=== PATIENT | female | born 1935 | race American Indian/Alaskan Native ===

== ENCOUNTER 2017-04-22 14:51 | Inpatient (IN) | payer MEDICARE, BC ==
[2017-04-22 16:57] LABS: BASO % 0.5 % (0.0-2.0); EOS # 0.1 K/uL (0.0-0.7); EOS % 1.3 % (0.0-4.0); HEMATOCRIT 41.4 % (34.0-47.0); LYMPH # 1.1 K/uL (1.0-4.3); LYMPH % 11.7 % (20.0-40.0); MEAN CELL VOLUME 94.4 fL (81.0-99.0); MEAN CORPUSCULAR HEMOGLOBIN 31.3 pg (27.0-31.0); MEAN CORPUSCULAR HGB CONC 33.2 g/dL (33.0-37.0); MEAN PLATELET VOLUME 8.1 fL (7.2-11.7); MONO # 0.8 K/uL (0.0-0.8); MONO % 8.8 % (0.0-10.0); RED CELL DISTRIBUTION WIDTH 14.9 % (11.5-14.5); WHITE BLOOD COUNT 9.3 K/uL (4.8-10.8)
[2017-04-22 17:04] LABS: INR 1.2
[2017-04-22 17:12] LABS: CHLORIDE 102 mmol/L (98-107); POTASSIUM 3.5 mmol/L (3.6-5.2); SODIUM 139 mmol/L (132-148)
[2017-04-22 17:14] LABS: GFR AFRICAN-AMERICAN > 60
[2017-04-22 17:15] LABS: ALB/GLOB RATIO 0.9 (1.0-2.1); ALKALINE PHOSPHATASE 355 U/L (38-126); ALT/SGPT 213 U/L (9-52); AST/SGOT 228 U/L (14-36); BILIRUBIN,DIRECT 12.3 mg/dL (0.0-0.4); BILIRUBIN,TOTAL 14.2 mg/dL (0.2-1.3); BLOOD UREA NITROGEN 15 mg/dL (7-17); CALCIUM 9.2 mg/dl (8.6-10.4); CARBON DIOXIDE 23 mmol/L (22-30); GLUCOSE,RANDOM 102 mg/dL (65-105); TOTAL PROTEIN 8.4 g/dL (6.3-8.3)
[2017-04-22] MEDS ORDERED: Imipenem/Cilastatin 500 MG in Dextrose 5% In Water 100 ML IVPB STA (17:38)
[2017-04-22] MEDS ORDERED: Piperacillin/Tazobact 3.375 GM in Sodium Chloride 100 ML IVPB STA (17:58)
--- NOTE | 2017-04-22 18:02 | C.PDOC ---
History Of Present Illness 81 y/o female with Hx of Choledocholithiasis sent to ED by PMD for evaluation of Jaundice and Choledocholithiasis. Patient had a STENT at [facility] and discharged home with advised follow up in 3 weeks. At ED patient is complaining of epigastric pain. Patient denies fever, chills, back pain, n/v or any other complaints at this time. Time Seen by Provider: 04/22/17 16:21 Chief Complaint (Nursing): Abdominal Pain History Per: Patient History/Exam Limitations: no limitations Onset/Duration Of Symptoms: Days Current Symptoms Are (Timing): Still Present Location Of Pain/Discomfort: Epigastric Past Medical History Reviewed: Historical Data, Nursing Documentation, Vital Signs Vital Signs: Last Vital Signs Temp 97.8 F 04/29/17 07:55 Pulse 76 04/29/17 07:55 Resp 20 04/29/17 07:55 BP 139/70 04/29/17 07:55 Pulse Ox 95 04/29/17 07:55 - Medical History PMH: HTN, Hyperlipidemia Surgical History: No Surg Hx - [facility] Procedures DILATION OF COMMON BILE DUCT WITH INTRALUMINAL DEVICE, ENDO (04/13/17) EXTIRPATION OF MATTER FROM COMMON BILE DUCT, ENDO (04/13/17) Family History: States: No Known Family Hx - Social History Hx Alcohol Use: No (USED TO DRINK OCCASIONALLY-DRANK BEER OR BOURBON) Hx Substance Use: No - Immunization History Hx Tetanus Toxoid Vaccination: No Hx Influenza Vaccination: No Hx Pneumococcal Vaccination: No Review Of Systems Except As Marked, All Systems Reviewed And Found Negative. Gastrointestinal: Positive for: Abdominal Pain Physical Exam - Physical Exam Appears: Non-toxic, No Acute Distress Skin: Normal Color, Warm, Dry, No Rash Head: Atraumatic, Normacephalic Eye(s): bilateral: PERRL, EOMI, Scleral Icterus Oral Mucosa: Moist Neck: Normal ROM, Supple Chest: Symmetrical Cardiovascular: Rhythm Regular, No Murmur Respiratory: Normal Breath Sounds, No Rales, No Rhonchi, No Wheezing Gastrointestinal/Abdominal: Tenderness (Mild epigastric), No Guarding, No Rebound Back: No CVA Tenderness, No Paraspinal Tenderness Neurological/Psych: Oriented x3 ED Course And Treatment - Laboratory Results Result Diagrams: 04/29/17 08:41 04/29/17 09:39 O2 Sat by Pulse Oximetry: 98 (RA) Pulse Ox Interpretation: Normal Medical Decision Making Medical Decision Making: Discussed with Dr. Purvis who requested IV antibiotics GI fellow covering for Dr Merlos request MRCP attempt today if not tomorrow GI Fellow called back No MRCP to be done, it will be done Tuesday Disposition - Disposition Disposition: HOSPITALIZED Disposition Time: 06:00 Condition: STABLE - Clinical Impression Clinical Impression: Choledocholithiasis - Scribe Statement The provider has reviewed the documentation as recorded by the Jodiibeverardo Pierre All medical record entries made by the Jodiibeverardo were at my direction and personally dictated by me. I have reviewed the chart and agree that the record accurately reflects my personal performance of the history, physical exam, medical decision making, and the department course for this patient. I have also personally directed, reviewed, and agree with the discharge instructions and disposition.
[2017-04-22 18:06] LABS: RBC URINE 12 /hpf (0-3); URINE BACTERIA FEW (<OCC); URINE BILIRUBIN 2+ (NEGATIVE); URINE BLOOD 1+ (NEGATIVE); URINE COLOR Amber (YELLOW); URINE GLUCOSE (UA) NORMAL (Normal); URINE KETONE NEGATIVE (NEGATIVE); URINE LEUKOCYTE ESTERASE NEG Leu/uL (Negative); URINE PROTEIN 1+ mg/dL (NEGATIVE); WBC URINE 4 /hpf (0-5)
[2017-04-22] MEDS ORDERED: Piperacillin/Tazobact 3.375 gm 100 ML IVPB ONE (18:13)
[2017-04-22] MEDS: Dextrose 5%/0.45% NS 1,000 ML IV SCH (22:59)
[2017-04-23] MEDS: Imipenem/Cilastatin 500 MG in Dextrose 5% In Water 100 ML IVPB SCH ×2 (02:45→09:47)
--- NOTE | 2017-04-23 06:19 | CP.PCM.CON ---
<Slade Garza - Last Filed: 04/23/17 09:46> History of Present Illness - History of Present Illness History of Present Illness: GI Consult Note 81 y/o F with PMH of HTN and HLD presents to the hospital for worsening juandice and epigastric pain. Pt was recently admitted and discharges from [place] less than 1 weeks ago for obstructive juandice/cholangitis. At the time , pt was found to have a distal CBD stone and an extraction via ERCP was attempted. We were only able to extract a small portion of the stone but were able to place a stent passed it. P was supposed to followup in 3 weeks to attempt another ERCP. Since discharge, pt has been having constipation and last BM was 5 days ago. she previously had Lower abd pain which was noted to be sharp in nature and located in the lower abd qaud B/L, with no immediate alleviating or exacerbating factors at this time but has resolved. TPt said she has not had any nausea or vomiting. Pt was initially found to have a T Ambrocio of 14 (12.3 direct) and upon discharge her Tbil was 6.7 (trending down). She was started on abx at in the ER. Denies any fever, chills, or diaphoresis. She admits to having decreased oral intake, flatulence, and feeling fatigued during this time. Pt also admits to feeling a slight subjective fever but no chills. Denies CP, SOB, N/V/D, dysphagia, melena, hematemesis, hematochezia. ROS: 12-point ROS conducted neg other than above PMH: HTN, HLD PSH: None FMH: None Social Hx: Denies alcohol, tobacco, or illicit drug use Endo Hx: ERCP 04/2017: partial removal of distal CBD stone, stent placed Medication: Reviewed, as per chart. Allergy: NKDA Past Patient History - Past Social History Smoking Status: Never Smoked - CARDIAC Hx Hypertension: Yes - PULMONARY Hx Respiratory Disorders: No - NEUROLOGICAL Hx Neurological Disorder: No - HEENT Hx HEENT Problems: Yes (YELLOW SCHLERAE) - RENAL Hx Chronic Kidney Disease: No - ENDOCRINE/METABOLIC Hx Endocrine Disorders: No - HEMATOLOGICAL/ONCOLOGICAL Hx Blood Disorders: No - INTEGUMENTARY Hx Dermatological Problems: No - MUSCULOSKELETAL/RHEUMATOLOGICAL Hx Musculoskeletal Disorders: No Hx Falls: No - GASTROINTESTINAL Hx Gastrointestinal Disorders: Yes (CONSTIPATION) - GENITOURINARY/GYNECOLOGICAL Hx Genitourinary Disorders: No - PSYCHIATRIC Hx Substance Use: No - SURGICAL HISTORY Hx Surgeries: No Other/Comment: ERCP - ANESTHESIA Hx Anesthesia: No Hx Anesthesia Reactions: No Hx Malignant Hyperthermia: No Meds Allergies/Adverse Reactions: Allergies Allergy/AdvReac Type Severity Reaction Status Date / Time No Known Allergies Allergy Verified 04/22/17 15:44 - Medications Medications: Current Medications Bisoprolol Fumarate/HCTZ (Ziac 2.5-6.25 Mg) 1 tab PO DAILY [facility] Imipenem/Cilastatin Sodium 500 (mg/ Dextrose) 100 mls @ 100 mls/hr IVPB Q6H [facility] Last Admin: 04/23/17 02:45 Dose: 100 mls/hr Dextrose/Sodium Chloride (Dextrose 5%/0.45% Ns 1000 Ml) 1,000 mls @ 100 mls/hr IV .Q10H [facility] Last Admin: 04/22/17 22:59 Dose: 100 mls/hr Physical Exam - Constitutional Appears: Well, No Acute Distress - Head Exam Head Exam: ATRAUMATIC, NORMOCEPHALIC - Eye Exam Eye Exam: Scleral icterus - ENT Exam ENT Exam: Mucous Membranes Moist - Respiratory Exam Respiratory Exam: Clear to Auscultation Bilateral, NORMAL BREATHING PATTERN. absent: Rales, Rhonchi, Wheezes - Cardiovascular Exam Cardiovascular Exam: REGULAR RHYTHM, +S1, +S2 - GI/Abdominal Exam GI & Abdominal Exam: Normal Bowel Sounds, Organomegaly. absent: Distended, Firm , Guarding, Rigid - Extremities Exam Extremities exam: Negative for: pedal edema - Neurological Exam Neurological exam: Alert, Oriented x3 - Psychiatric Exam Psychiatric exam: Normal Affect, Normal Mood - Skin Skin Exam: Dry, Intact, Warm Additional comments: juandiced Results - Vital Signs Recent Vital Signs: Last Vital Signs Temp 98.3 F 04/23/17 00:00 Pulse 78 04/23/17 00:00 Resp 20 04/23/17 00:00 BP 145/69 04/23/17 00:00 Pulse Ox 99 04/23/17 00:00 - Labs Result Diagrams: 04/22/17 16:50 04/22/17 16:50 Labs: Laboratory Results - last 24 hr 04/22/17 17:43 Urine Color Annamarie Urine Clarity Clear Urine pH 5.0 Ur Specific [place] 1.026 Urine Protein 1+ H Urine Glucose (UA) Normal Urine Ketones Negative Urine Blood 1+ H Urine Nitrate Negative Urine Bilirubin 2+ H Urine Urobilinogen 4.0 H Ur Leukocyte Esterase Neg Urine WBC (Auto) 4 Urine RBC (Auto) 12 H Ur Squamous Epith Cells 10 H Urine Bacteria Few H Assessment & Plan - Assessment and Plan (Free Text) Assessment: 81 y/o F with PMH of HTN and HLD presents with worsening juandice. Recently fount to have choledocolithiasis with only partial extraction of stone via ERCP s/p stent placement Worsening Juandice likely 2/2 Stent obstruction Choledocolithiasis Cholelithiasis Plan: -will likely go for an ERCP on Wednesday 04/25 -if pt become febrile or unstable recommend upgrading to ICU and will do an emergent ERCP -continue abx -continue clears for now -continue IV fluids -BC pending -no need for imaging at this time -lap marlyn as an oupt -NPO aftertuesday night -hold anticoag tuesday night will d/w Dr. Merlos <Adam Merlos - Last Filed: 04/23/17 11:47> Meds - Medications Medications: Current Medications Bisoprolol Fumarate/HCTZ (Ziac 2.5-6.25 Mg) 1 tab PO DAILY [facility] Last Admin: 04/23/17 09:45 Dose: 1 tab Dextrose/Sodium Chloride (Dextrose 5%/0.45% Ns 1000 Ml) 1,000 mls @ 100 mls/hr IV .Q10H [facility] Last Admin: 04/22/17 22:59 Dose: 100 mls/hr Imipenem/Cilastatin Sodium 500 (mg/ Sodium Chloride) 100 mls @ 100 mls/hr IVPB Q6H [facility] Pneumococcal Polyvalent Vaccine (Pneumovax 23 Vaccine) 0.5 ml IM .ONCE ONE Stop: 04/24/17 10:01 Polyethylene Glycol (Miralax) 17 gm PO DAILY [facility] Last Admin: 04/23/17 09:44 Dose: 17 gm Sennosides (Senokot Tab) 8.6 mg PO DAILY [facility] Last Admin: 04/23/17 09:43 Dose: 8.6 mg Results - Vital Signs Recent Vital Signs: Last Vital Signs Temp 98 F 04/23/17 07:58 Pulse 73 04/23/17 07:58 Resp 20 04/23/17 07:58 BP 147/70 04/23/17 07:58 Pulse Ox 97 04/23/17 07:58 - Labs Result Diagrams: 04/22/17 16:50 04/22/17 16:50 Labs: Laboratory Results - last 24 hr 04/22/17 17:43 Urine Color Annamarie Urine Clarity Clear Urine pH 5.0 Ur Specific [place] 1.026 Urine Protein 1+ H Urine Glucose (UA) Normal Urine Ketones Negative Urine Blood 1+ H Urine Nitrate Negative Urine Bilirubin 2+ H Urine Urobilinogen 4.0 H Ur Leukocyte Esterase Neg Urine WBC (Auto) 4 Urine RBC (Auto) 12 H Ur Squamous Epith Cells 10 H Urine Bacteria Few H Attending/Attestation - Attestation I have personally seen and examined this patient.: Yes I have fully participated in the care of the patient.: Yes I have reviewed all pertinent clinical information: Yes Notes (Text): 04/23/17 11:45 81 year old female with h/o HTN, HLD, cholelithiasis, and choledocholithiasis c/ b cholangitis recently s/p ERCP with Spyglass/EHL and stent placement now readmitted with recurrent jaundice. 1. Choledocholithiasis 2. Biliary obstruction Plan: -patient needs repeat ERCP -plan for procedure on Tuesday at [facility] with repeat spyglass/EHL -recommend broad spectrum abx in the interim to prevent cholangitis -supportive measures in the meantime as above
[2017-04-23] MEDS ORDERED: Bisacodyl 5mg EC Tab PO ONE ×2 (07:30→09:27)
[2017-04-23] MEDS: POLYETHYLENE GLYCOL 3350 17 GM/Dose PACKET PO SCH (09:44)
[2017-04-23] MEDS: Bisoprolol-HCTZ 2.5-6.25 mg Tab PO SCH (09:45)
[2017-04-23] MEDS: Dextrose 5%/0.45% NS 1,000 ML IV SCH ×3 (12:43→19:09)
--- NOTE | 2017-04-23 15:16 | CP.PCM.CON ---
<Gayatri House - Last Filed: 04/23/17 18:14> History of Present Illness - History of Present Illness History of Present Illness: General Surgery Consult note for Dr. Nicholson Consulted for: Cholecystitis, choledocholithiasis Patient is an 81F with PMH of HTN, HLD, who presents to the ER for abdominal pain and jaundice. Patient was recently admitted and discharged from [facility] for cholangitis d/t choledocholithiais. During that admission patient underwent ERCP during which a stone was found in the common bile duct but was only partially retrievable. A stent, however, was placed proximally to the obstruction and good flow throughout the biliary tree was confirmed at that time. Patient was discharged with plans for follow up in 4 weeks for another ERCP. 4 days ago patient began having symptoms of constipation, increased flatulance, and dyspepsia. Patient was seen by her primary doctor yesterday who sent her to the ER. Patient was found to have total bilirubin of 14.2 and transaminitis and was admitted to the hospital. Patient states that she currently has mild intermittent pain in her RUQ that radiates to her back. She is tolerating her diet without any nausea or vomiting. She reports not moving her bowels for 5 days, but denies fevers, chills, dysuria, hematuria, melena, hematochezia, chest pain, or SOB. PMH: HLD, HTN PSH: none All: NKDA Social: former drinker, denies tobacco or illicit drug use, lives with family. Review of Systems - Review of Systems All systems: reviewed and no additional remarkable complaints except - Constitutional Constitutional: absent: Chills, Fever, Weakness - EENT Additional comments: scleral icterus - Cardiovascular Cardiovascular: absent: Chest Pain, Chest Pain at Rest, Dyspnea - Respiratory Respiratory: absent: Cough, Dyspnea, Dyspnea on Exertion - Gastrointestinal Gastrointestinal: As Per HPI, Abdominal Pain, Belching, Bloating, Constipation, Dyspepsia, Excessive Flatus. absent: Diarrhea, Melena, Nausea, Vomiting - Genitourinary Genitourinary: absent: Dysuria, Hematuria - Musculoskeletal Musculoskeletal: Back Pain - Integumentary Integumentary: Jaundice. absent: Rash - Neurological Neurological: absent: Numbness, Tingling, Weakness Past Patient History - Past Medical History & Family History Past Medical History?: Yes - Past Social History Smoking Status: Never Smoked - CARDIAC Hx Hypertension: Yes - PULMONARY Hx Respiratory Disorders: No - NEUROLOGICAL Hx Neurological Disorder: No - HEENT Hx HEENT Problems: Yes (YELLOW SCHLERAE) - RENAL Hx Chronic Kidney Disease: No - ENDOCRINE/METABOLIC Hx Endocrine Disorders: No - HEMATOLOGICAL/ONCOLOGICAL Hx Blood Disorders: No - INTEGUMENTARY Hx Dermatological Problems: No - MUSCULOSKELETAL/RHEUMATOLOGICAL Hx Musculoskeletal Disorders: No Hx Falls: No - GASTROINTESTINAL Hx Gastrointestinal Disorders: Yes (CONSTIPATION) - GENITOURINARY/GYNECOLOGICAL Hx Genitourinary Disorders: No - PSYCHIATRIC Hx Substance Use: No - SURGICAL HISTORY Hx Surgeries: No Other/Comment: ERCP - ANESTHESIA Hx Anesthesia: No Hx Anesthesia Reactions: No Hx Malignant Hyperthermia: No Meds Allergies/Adverse Reactions: Allergies Allergy/AdvReac Type Severity Reaction Status Date / Time No Known Allergies Allergy Verified 04/22/17 15:44 - Medications Medications: Current Medications Bisoprolol Fumarate/HCTZ (Ziac 2.5-6.25 Mg) 1 tab PO DAILY [facility] Last Admin: 04/23/17 09:45 Dose: 1 tab Dextrose/Sodium Chloride (Dextrose 5%/0.45% Ns 1000 Ml) 1,000 mls @ 100 mls/hr IV .Q10H [facility] Last Admin: 04/23/17 12:50 Dose: 100 mls/hr Imipenem/Cilastatin Sodium 500 (mg/ Sodium Chloride) 100 mls @ 100 mls/hr IVPB Q6H [facility] Last Admin: 04/23/17 14:06 Dose: 100 mls/hr Pneumococcal Polyvalent Vaccine (Pneumovax 23 Vaccine) 0.5 ml IM .ONCE ONE Stop: 04/24/17 10:01 Polyethylene Glycol (Miralax) 17 gm PO DAILY [facility] Last Admin: 04/23/17 09:44 Dose: 17 gm Sennosides (Senokot Tab) 8.6 mg PO DAILY [facility] Last Admin: 04/23/17 09:43 Dose: 8.6 mg Physical Exam - Constitutional Appears: Non-toxic, No Acute Distress - Head Exam Head Exam: ATRAUMATIC, NORMOCEPHALIC - Eye Exam Eye Exam: EOMI, Scleral icterus. absent: Conjunctival injection - ENT Exam ENT Exam: Mucous Membranes Moist, Normal Oropharynx - Respiratory Exam Respiratory Exam: NORMAL BREATHING PATTERN. absent: Accessory Muscle Use, Respiratory Distress - Cardiovascular Exam Cardiovascular Exam: RRR - GI/Abdominal Exam GI & Abdominal Exam: Soft. absent: Distended, Rigid, Tenderness Additional comments: fullness in the RUQ. Negative luong's sign - Extremities Exam Extremities exam: Positive for: pedal pulses present. Negative for: calf tenderness, pedal edema - Neurological Exam Neurological exam: Alert, Oriented x3 - Psychiatric Exam Psychiatric exam: Normal Affect, Normal Mood - Skin Skin Exam: Dry, Intact, Warm Additional comments: jaundiced Results - Vital Signs Recent Vital Signs: Last Vital Signs Temp 98 F 04/23/17 07:58 Pulse 73 04/23/17 07:58 Resp 20 04/23/17 07:58 BP 147/70 04/23/17 07:58 Pulse Ox 97 04/23/17 07:58 - Labs Result Diagrams: 04/22/17 16:50 04/22/17 16:50 Labs: Laboratory Results - last 24 hr 04/22/17 17:43 Urine Color Annamarie Urine Clarity Clear Urine pH 5.0 Ur Specific [place] 1.026 Urine Protein 1+ H Urine Glucose (UA) Normal Urine Ketones Negative Urine Blood 1+ H Urine Nitrate Negative Urine Bilirubin 2+ H Urine Urobilinogen 4.0 H Ur Leukocyte Esterase Neg Urine WBC (Auto) 4 Urine RBC (Auto) 12 H Ur Squamous Epith Cells 10 H Urine Bacteria Few H Assessment & Plan - Assessment and Plan (Free Text) Assessment: 81F with jaundice, hyperbilirubinemia, and transaminitis likely due to occluded common bile duct stent Afebrile, VSS, abdominal exam benign No leukocytosis T bili 14.2, AST 228, ALT 213, ALP 355 (6.7, 185, 177, and 160 respectively upon last admit 1 week ago) Lipase WNL Plan: -Per GI, ERCP on Tuesday--further surgical planning pending results -Continue to trend CBC and CMP -Serial abdominal exams -Abdominal US--keep NPO after midnight -PRN medication for pain and nausea -Continue IV abx per primary -Continue IVF -Continue medical management per primary team Thank you for this consult Discussed with Dr. Nicholson, further recs per him. Gayatri House, PGY2 <Jeremiah Nicholson - Last Filed: 04/25/17 10:52> Meds - Medications Medications: Current Medications Bisoprolol Fumarate/HCTZ (Ziac 2.5-6.25 Mg) 1 tab PO DAILY [facility] Last Admin: 04/25/17 10:14 Dose: Not Given Dextrose/Sodium Chloride (Dextrose 5%/0.45% Ns 1000 Ml) 1,000 mls @ 100 mls/hr IV .Q10H [facility] Last Admin: 04/25/17 01:25 Dose: 100 mls/hr Imipenem/Cilastatin Sodium 500 (mg/ Sodium Chloride) 100 mls @ 100 mls/hr IVPB Q6H [facility] Last Admin: 04/25/17 08:44 Dose: Not Given Pantoprazole Sodium (Protonix Inj) 40 mg IVP DAILY [facility] Last Admin: 04/25/17 10:13 Dose: Not Given Polyethylene Glycol (Miralax) 17 gm PO DAILY [facility] Last Admin: 04/25/17 10:12 Dose: Not Given Sennosides (Senokot Tab) 8.6 mg PO DAILY [facility] Last Admin: 04/25/17 10:13 Dose: Not Given Results - Vital Signs Recent Vital Signs: Last Vital Signs Temp 98.4 F 04/25/17 07:36 Pulse 80 04/25/17 07:36 Resp 20 04/25/17 07:36 BP 103/61 04/25/17 07:36 Pulse Ox 98 04/25/17 07:36 - Labs Result Diagrams: 04/24/17 08:36 04/24/17 08:36
--- NOTE | 2017-04-23 17:20 | RAD ---
HISTORY: pre-op COMPARISON: No prior. TECHNIQUE: Chest PA and lateral FINDINGS: LUNGS: Linear opacity seen at the right mid to upper lung likely represents scar tissue. No evidence of acute pulmonary disease. PLEURA: No significant pleural effusion identified. No pneumothorax apparent. CARDIOVASCULAR: Normal. OSSEOUS STRUCTURES: No significant abnormalities. VISUALIZED UPPER ABDOMEN: Normal. OTHER FINDINGS: None. IMPRESSION: No active disease.
--- NOTE | 2017-04-24 00:08 | HP ---
HISTORY OF PRESENT ILLNESS: This is an 81 years old -H[place] female with history of hypertension, recently was discharged from [facility] after she was admitted for ascending cholangitis with choledocholithiasis. The patient presented to my office in the day for admission with severe jaundice. After consulting with gastroenterology, patient was sent in to emergency room for evaluation. The patient was found that her bilirubin went up from 6 on the day of discharge from [facility] 6 days earlier to 14 on the day of admission. The patient was admitted for further management. The patient complains of loss of appetite and feeling flatulent and general abdominal discomfort. OTHER REVIEW OF SYSTEMS: Negative. ALLERGIES: NO KNOWN ALLERGIES. HOME MEDICATIONS: Benicar 40 mg daily, Keflex 500 mg three times a day, and Ziac 2.5/6.25 once a day. SOCIAL HISTORY: No history of smoking, EtOH or substance abuse. FAMILY HISTORY: Not contributory. PAST MEDICAL HISTORY: Hypertension and cholelithiasis. PHYSICAL EXAMINATION: GENERAL: The patient is in bed, comfortable, at the time of this examination. VITAL SIGNS: With blood pressure 147/78, temperature 98, respiratory rate 20 and pulse 73. HEENT: Pupils are equal and reactive to light. Normal-appearing mucosa of the conjunctivae. Icteric sclerae. NECK: Supple. No JVD. No carotid bruit. No lymph node. No thyromegaly. CHEST AND LUNGS: Bilateral symmetrical expansion. Good air exchange. No rales and no rhonchi. CARDIOVASCULAR SYSTEM: PMI not localized. S1 and S2. No additional sounds. ABDOMEN: Normoactive bowel sounds. No tenderness. No organomegaly. No masses. EXTREMITIES: No cyanosis. No clubbing. No edema. CENTRAL NERVOUS SYSTEM: Alert, awake, and oriented x3. No neurological deficit could be appreciated. ASSESSMENT: 1. Obstructive jaundice secondary to choledocholithiasis. 2. Cholelithiasis. PLAN: We will start patient on IV Primaxin. GI and surgical consult. IV fluid. Monitor electrolytes. Discussed the patient's condition with her daughter at the bedside. Jp Purvis MD
[2017-04-24] MEDS: Dextrose 5%/0.45% NS 1,000 ML IV SCH ×3 (01:20→15:50)
--- NOTE | 2017-04-24 03:35 | CP.PCM.PN ---
Subjective - Date & Time of Evaluation Date of Evaluation: 04/24/17 Time of Evaluation: 06:20 - Subjective Subjective: Patient seen and examined at bedside this AM. NAEO. Patient denies any nausea, vomiting, fevers, but states intermittent RUQ pain. Objective - Vital Signs/Intake and Output Vital Signs (last 24 hours): Temp Pulse Resp BP Pulse Ox 98.1 F 74 20 126/67 96 04/23/17 23:57 04/23/17 23:57 04/23/17 23:57 04/23/17 23:57 04/23/17 23:57 Intake and Output: 04/23/17 04/24/17 18:59 06:59 Intake Total 700 1150 Balance 700 1150 - Medications Medications: Current Medications Bisoprolol Fumarate/HCTZ (Ziac 2.5-6.25 Mg) 1 tab PO DAILY [facility] Last Admin: 04/23/17 09:45 Dose: 1 tab Dextrose/Sodium Chloride (Dextrose 5%/0.45% Ns 1000 Ml) 1,000 mls @ 100 mls/hr IV .Q10H [facility] Last Admin: 04/24/17 01:20 Dose: 100 mls/hr Imipenem/Cilastatin Sodium 500 (mg/ Sodium Chloride) 100 mls @ 100 mls/hr IVPB Q6H [facility] Last Admin: 04/24/17 01:19 Dose: 100 mls/hr Pantoprazole Sodium (Protonix Inj) 40 mg IVP DAILY [facility] Pneumococcal Polyvalent Vaccine (Pneumovax 23 Vaccine) 0.5 ml IM .ONCE ONE Stop: 04/24/17 10:01 Polyethylene Glycol (Miralax) 17 gm PO DAILY [facility] Last Admin: 04/23/17 09:44 Dose: 17 gm Sennosides (Senokot Tab) 8.6 mg PO DAILY [facility] Last Admin: 04/23/17 09:43 Dose: 8.6 mg - Labs Labs: PT 13.3 SECONDS (9.7-12.2) H 04/22/17 16:50 INR 1.2 04/22/17 16:50 APTT 32 SECONDS (21-34) 04/22/17 16:50 - Constitutional Appears: Non-toxic, No Acute Distress - Head Exam Head Exam: ATRAUMATIC, NORMOCEPHALIC - Eye Exam Eye Exam: Normal appearance, Scleral icterus. absent: Conjunctival injection - ENT Exam ENT Exam: Mucous Membranes Moist, Normal Oropharynx - Respiratory Exam Respiratory Exam: NORMAL BREATHING PATTERN. absent: Accessory Muscle Use, Respiratory Distress - Cardiovascular Exam Cardiovascular Exam: RRR - GI/Abdominal Exam GI & Abdominal Exam: Soft. absent: Distended, Tenderness Additional comments: Fullness in the RUQ, palpable mass - Extremities Exam Extremities Exam: absent: Calf Tenderness, Pedal Edema, Tenderness - Neurological Exam Neurological Exam: Alert, Awake, Oriented x3 - Psychiatric Exam Psychiatric exam: Normal Affect, Normal Mood - Skin Skin Exam: Dry, Warm Additional comments: jaundiced Assessment and Plan - Assessment and Plan (Free Text) Assessment: 81F with jaundice, hyperbilirubinemia, and transaminitis likely due to occluded common bile duct stent T bili 12.3 from 14.2, AST 293 from 228, ALT 181 from 213, ALP 332 from 355 Plan: -F/u GI recs: ERCP on Tuesday--further surgical planning pending results -Continue to trend CBC and CMP -Serial abdominal exams -F/u abd US -Advance diet once US completed -PRN medication for pain and nausea -Continue IV abx per primary -Continue IVF -Continue medical management per primary team Discussed with Dr. Nicholson, further recs per him. Gayatri House, PGY2
[2017-04-24 08:50] LABS: BASO # 0.1 K/uL (0.0-0.2); BASO % 1.1 % (0.0-2.0); EOS # 0.3 K/uL (0.0-0.7); EOS % 3.3 % (0.0-4.0); HEMATOCRIT 32.7 % (34.0-47.0); LYMPH # 2.8 K/uL (1.0-4.3); LYMPH % 29.9 % (20.0-40.0); MEAN CELL VOLUME 93.8 fL (81.0-99.0); MEAN CORPUSCULAR HEMOGLOBIN 32.6 pg (27.0-31.0); MEAN CORPUSCULAR HGB CONC 34.8 g/dL (33.0-37.0); MEAN PLATELET VOLUME 8.7 fL (7.2-11.7); MONO # 0.9 K/uL (0.0-0.8); RED CELL DISTRIBUTION WIDTH 15.2 % (11.5-14.5); WHITE BLOOD COUNT 9.2 K/uL (4.8-10.8)
[2017-04-24 09:19] LABS: CHLORIDE 104 mmol/L (98-107); SODIUM 140 mmol/L (132-148)
[2017-04-24 09:20] LABS: POTASSIUM 3.3 mmol/L (3.6-5.2)
[2017-04-24 09:22] LABS: ALB/GLOB RATIO 0.9 (1.0-2.1); ALKALINE PHOSPHATASE 332 U/L (38-126); AST/SGOT 293 U/L (14-36); BLOOD UREA NITROGEN 11 mg/dL (7-17); CARBON DIOXIDE 25 mmol/L (22-30); GFR AFRICAN-AMERICAN > 60; TOTAL PROTEIN 7.5 g/dL (6.3-8.3)
[2017-04-24 09:23] LABS: ALT/SGPT 181 U/L (9-52); CALCIUM 8.6 mg/dl (8.6-10.4); GLUCOSE,RANDOM 100 mg/dL (65-105)
[2017-04-24 09:41] LABS: BILIRUBIN,TOTAL 13.5 mg/dL (0.2-1.3)
[2017-04-24] MEDS ORDERED: Pneumococcal 23-Valent Vaccine IM ONE (10:00)
[2017-04-24] MEDS: Bisoprolol-HCTZ 2.5-6.25 mg Tab PO SCH ×2 (10:46→11:45)
[2017-04-24] MEDS: POLYETHYLENE GLYCOL 3350 17 GM/Dose PACKET PO SCH ×2 (10:46→11:44)
--- NOTE | 2017-04-24 11:31 | CP.PCM.PN ---
<Slade Garza - Last Filed: 04/24/17 11:33> Subjective - Date & Time of Evaluation Date of Evaluation: 04/24/17 Time of Evaluation: 07:45 - Subjective Subjective: PGY4 GI Follow-up Pt seen and examined bedside no complaints at this time tolerating diet Denies any abd pain, nausea, or vomiting ROS: 10 point JOSIAH conducted, neg other than above Objective - Vital Signs/Intake and Output Vital Signs (last 24 hours): Temp Pulse Resp BP Pulse Ox 98.2 F 80 20 124/73 96 04/24/17 08:33 04/24/17 08:33 04/24/17 08:33 04/24/17 08:33 04/24/17 08:33 Intake and Output: 04/24/17 04/24/17 06:59 18:59 Intake Total 1950 Balance 1950 - Medications Medications: Current Medications Bisoprolol Fumarate/HCTZ (Ziac 2.5-6.25 Mg) 1 tab PO DAILY [facility] Last Admin: 04/24/17 10:46 Dose: Not Given Dextrose/Sodium Chloride (Dextrose 5%/0.45% Ns 1000 Ml) 1,000 mls @ 100 mls/hr IV .Q10H [facility] Last Admin: 04/24/17 04:18 Dose: Not Given Imipenem/Cilastatin Sodium 500 (mg/ Sodium Chloride) 100 mls @ 100 mls/hr IVPB Q6H [facility] Last Admin: 04/24/17 08:11 Dose: 100 mls/hr Pantoprazole Sodium (Protonix Inj) 40 mg IVP DAILY [facility] Last Admin: 04/24/17 10:50 Dose: Not Given Polyethylene Glycol (Miralax) 17 gm PO DAILY [facility] Last Admin: 04/24/17 10:46 Dose: Not Given Sennosides (Senokot Tab) 8.6 mg PO DAILY [facility] Last Admin: 04/24/17 10:46 Dose: Not Given - Labs Labs: 04/24/17 08:36 04/24/17 08:36 PT 13.3 SECONDS (9.7-12.2) H 04/22/17 16:50 INR 1.2 04/22/17 16:50 APTT 32 SECONDS (21-34) 04/22/17 16:50 - Constitutional Appears: Well, No Acute Distress - Head Exam Head Exam: ATRAUMATIC, NORMOCEPHALIC - Eye Exam Eye Exam: Scleral icterus - Respiratory Exam Respiratory Exam: Clear to Ausculation Bilateral, NORMAL BREATHING PATTERN. absent: Rales, Rhonchi, Wheezes - Cardiovascular Exam Cardiovascular Exam: REGULAR RHYTHM, +S1, +S2 - GI/Abdominal Exam GI & Abdominal Exam: Soft, Normal Bowel Sounds - Extremities Exam Extremities Exam: absent: Pedal Edema - Neurological Exam Neurological Exam: Alert, Awake, Oriented x3 - Psychiatric Exam Psychiatric exam: Anxious, Normal Mood - Skin Skin Exam: Dry, Intact, Warm Additional comments: juandiced Assessment and Plan - Assessment and Plan (Free Text) Assessment: 81 y/o F with PMH of HTN and HLD presents with worsening juandice. Recently fount to have choledocolithiasis with only partial extraction of stone via ERCP s/p stent placement Worsening Juandice likely 2/2 Stent obstruction Choledocolithiasis Cholelithiasis Plan: -will likely go for an ERCP on Wednesday 04/25 -if pt become febrile or unstable recommend upgrading to ICU and will do an emergent ERCP -continue abx -continue IV fluids -lap marlyn as per surgery -NPO aftertuesday night -hold anticoag tuesday night d/w Dr. Merlos <Adam Merlos - Last Filed: 04/24/17 15:02> Objective - Vital Signs/Intake and Output Vital Signs (last 24 hours): Temp Pulse Resp BP Pulse Ox 98.2 F 80 20 124/73 96 04/24/17 08:33 04/24/17 08:33 04/24/17 08:33 04/24/17 08:33 04/24/17 08:33 Intake and Output: 04/24/17 04/24/17 06:59 18:59 Intake Total 1950 500 Output Total 0 Balance 1950 500 - Medications Medications: Current Medications Bisoprolol Fumarate/HCTZ (Ziac 2.5-6.25 Mg) 1 tab PO DAILY [facility] Last Admin: 04/24/17 11:45 Dose: 1 tab Dextrose/Sodium Chloride (Dextrose 5%/0.45% Ns 1000 Ml) 1,000 mls @ 100 mls/hr IV .Q10H [facility] Last Admin: 04/24/17 04:18 Dose: Not Given Imipenem/Cilastatin Sodium 500 (mg/ Sodium Chloride) 100 mls @ 100 mls/hr IVPB Q6H [facility] Last Admin: 04/24/17 14:04 Dose: 100 mls/hr Pantoprazole Sodium (Protonix Inj) 40 mg IVP DAILY [facility] Last Admin: 04/24/17 11:43 Dose: 40 mg Polyethylene Glycol (Miralax) 17 gm PO DAILY [facility] Last Admin: 04/24/17 11:44 Dose: 17 gm Sennosides (Senokot Tab) 8.6 mg PO DAILY [facility] Last Admin: 04/24/17 11:43 Dose: 8.6 mg - Labs Labs: 04/24/17 08:36 04/24/17 08:36 PT 13.3 SECONDS (9.7-12.2) H 04/22/17 16:50 INR 1.2 04/22/17 16:50 APTT 32 SECONDS (21-34) 04/22/17 16:50 Attending/Attestation - Attestation I have personally seen and examined this patient.: Yes I have fully participated in the care of the patient.: Yes I have reviewed all pertinent clinical information, including history, physical exam and plan: Yes Notes (Text): 04/24/17 15:02 81 year old female with h/o HTN, HLD, cholelithiasis, and choledocholithiasis c/ b cholangitis recently s/p ERCP with Spyglass/EHL and stent placement now readmitted with recurrent jaundice. 1. Choledocholithiasis 2. Biliary obstruction Plan: -patient needs repeat ERCP -plan for procedure on Tuesday at [facility] with repeat spyglass/EHL -recommend broad spectrum abx in the interim to prevent cholangitis -supportive measures in the meantime as above
--- NOTE | 2017-04-24 13:28 | US ---
HISTORY: obstructive jaundice COMPARISON: None. TECHNIQUE: Sonographic evaluation of the abdomen. FINDINGS: LIVER: Measures 16.5 cm. Heterogeneous increased echogenicity of the liver parenchyma. No mass. Mild intrahepatic bile duct dilatation. GALLBLADDER: Gallstones are seen. There is a thickening in the gallbladder wall measures up to 4.9 millimeter. COMMON BILE DUCT: Measures 13.8 mm. This suspicious for stones in the common bile duct. PANCREAS: Unremarkable as visualized. No mass. No ductal dilatation. RIGHT KIDNEY: Measures 11.7 x 4.4 x 5.7cm. Normal echogenicity. No calculus, mass, or hydronephrosis. LEFT KIDNEY: Measures 11.4 x 6.1 x 5.5cm. Normal echogenicity. No calculus, mass, or hydronephrosis. SPLEEN: Normal in size and contour. No mass. AORTA: No aneurysmal dilatation. IVC: Unremarkable. OTHER FINDINGS: None. IMPRESSION: Dilated common bile duct with findings suspicious for choledocholithiasis. Cholelithiasis and gallbladder wall thickening. If clinically warranted further assessment by MRCP may be obtained. Mildly echogenic liver suggestive of hepatic steatosis.
[2017-04-24] MEDS ORDERED: Potassium Chloride 20 mEq ER Tab PO ONE (16:21)
[2017-04-25] MEDS: Dextrose 5%/0.45% NS 1,000 ML IV SCH ×2 (01:25→21:26)
--- NOTE | 2017-04-25 07:50 | CP.PCM.PN ---
Subjective - Date & Time of Evaluation Date of Evaluation: 04/25/17 Time of Evaluation: 07:47 - Subjective Subjective: Surgery Pt s&e. ZEINAB. Pt planned for ERCP today at [place]. Denies F/C/N/V/D/CP/SOB. Pain controlled. Objective - Vital Signs/Intake and Output Vital Signs (last 24 hours): Temp Pulse Resp BP Pulse Ox 98.4 F 80 20 103/61 98 04/25/17 07:36 04/25/17 07:36 04/25/17 07:36 04/25/17 07:36 04/25/17 07:36 Intake and Output: 04/25/17 04/25/17 06:59 18:59 Intake Total 1850 Balance 1850 - Medications Medications: Current Medications Bisoprolol Fumarate/HCTZ (Ziac 2.5-6.25 Mg) 1 tab PO DAILY [facility] Last Admin: 04/24/17 11:45 Dose: 1 tab Dextrose/Sodium Chloride (Dextrose 5%/0.45% Ns 1000 Ml) 1,000 mls @ 100 mls/hr IV .Q10H [facility] Last Admin: 04/25/17 01:25 Dose: 100 mls/hr Imipenem/Cilastatin Sodium 500 (mg/ Sodium Chloride) 100 mls @ 100 mls/hr IVPB Q6H [facility] Last Admin: 04/25/17 01:24 Dose: 100 mls/hr Pantoprazole Sodium (Protonix Inj) 40 mg IVP DAILY [facility] Last Admin: 04/24/17 11:43 Dose: 40 mg Polyethylene Glycol (Miralax) 17 gm PO DAILY [facility] Last Admin: 04/24/17 11:44 Dose: 17 gm Sennosides (Senokot Tab) 8.6 mg PO DAILY [facility] Last Admin: 04/24/17 11:43 Dose: 8.6 mg - Labs Labs: 04/24/17 08:36 04/24/17 08:36 PT 13.3 SECONDS (9.7-12.2) H 04/22/17 16:50 INR 1.2 04/22/17 16:50 APTT 32 SECONDS (21-34) 04/22/17 16:50 - Constitutional Appears: No Acute Distress - Head Exam Head Exam: ATRAUMATIC, NORMAL INSPECTION, NORMOCEPHALIC - Eye Exam Eye Exam: EOMI, Normal appearance, PERRL, Scleral icterus Pupil Exam: NORMAL ACCOMODATION, PERRL - ENT Exam ENT Exam: Mucous Membranes Moist, Normal Exam - Neck Exam Neck Exam: Full ROM, Normal Inspection. absent: Lymphadenopathy - Respiratory Exam Respiratory Exam: Clear to Ausculation Bilateral, NORMAL BREATHING PATTERN - Cardiovascular Exam Cardiovascular Exam: REGULAR RHYTHM, +S1, +S2. absent: Murmur - GI/Abdominal Exam GI & Abdominal Exam: Soft, Tenderness, Normal Bowel Sounds. absent: Distended, Firm, Guarding, Rebound - Extremities Exam Extremities Exam: Full ROM, Normal Capillary Refill, Normal Inspection. absent : Joint Swelling, Pedal Edema - Back Exam Back Exam: NORMAL INSPECTION - Neurological Exam Neurological Exam: Alert, Awake, CN II-XII Intact, Normal Gait, Oriented x3 - Psychiatric Exam Psychiatric exam: Normal Affect, Normal Mood - Skin Skin Exam: Dry, Intact, Warm. absent: Normal Color Additional comments: Juandice Assessment and Plan - Assessment and Plan (Free Text) Assessment: 81F with jaundice, hyperbilirubinemia, and transaminitis likely due to occluded common bile duct stent T bili 12.3 from 14.2, AST 293 from 228, ALT 181 from 213, ALP 332 from 355 Plan: -F/u GI recs: ERCP on Tuesday--further surgical planning pending results -Continue to trend CBC and CMP -Serial abdominal exams -PRN medication for pain and nausea -Continue IV abx -Continue IVF -Continue medical management per primary team Will Discuss with Dr. Nicholson
[2017-04-25 09:20] VITALS: BMI 25.2
[2017-04-25] MEDS: POLYETHYLENE GLYCOL 3350 17 GM/Dose PACKET PO SCH (10:12)
[2017-04-25] MEDS: Bisoprolol-HCTZ 2.5-6.25 mg Tab PO SCH (10:14)
[2017-04-26 07:59] LABS: HEMATOCRIT 30.9 % (34.0-47.0); MEAN CELL VOLUME 93.7 fL (81.0-99.0); MEAN CORPUSCULAR HEMOGLOBIN 32.2 pg (27.0-31.0); MEAN CORPUSCULAR HGB CONC 34.4 g/dL (33.0-37.0); MEAN PLATELET VOLUME 8.9 fL (7.2-11.7); RED CELL DISTRIBUTION WIDTH 15.1 % (11.5-14.5)
[2017-04-26 08:05] LABS: CHLORIDE 105 mmol/L (98-107); POTASSIUM 3.4 mmol/L (3.6-5.2); SODIUM 139 mmol/L (132-148)
[2017-04-26 08:07] LABS: ALB/GLOB RATIO 0.9 (1.0-2.1); ALKALINE PHOSPHATASE 433 U/L (38-126); ALT/SGPT 172 U/L (9-52); AST/SGOT 282 U/L (14-36); BILIRUBIN,TOTAL 16.2 mg/dL (0.2-1.3); BLOOD UREA NITROGEN 7 mg/dL (7-17); CALCIUM 8.4 mg/dl (8.6-10.4); CARBON DIOXIDE 21 mmol/L (22-30); GFR AFRICAN-AMERICAN > 60; GLUCOSE,RANDOM 116 mg/dL (65-105); TOTAL PROTEIN 7.4 g/dL (6.3-8.3)
--- NOTE | 2017-04-26 08:39 | CP.PCM.PN ---
Subjective - Date & Time of Evaluation Date of Evaluation: 04/26/17 Time of Evaluation: 08:34 - Subjective Subjective: General Surgery - Dr. Nicholson Pt S&E. WENDY. Pt is s/p ERCP w/ sphincterotomy and [place] [facility] [place]. Today she denies any complaints. No abdominal pain, N/V, F/C, SOB/Cp. Objective - Vital Signs/Intake and Output Vital Signs (last 24 hours): Temp Pulse Resp BP Pulse Ox 98.2 F 80 20 147/73 99 04/26/17 08:12 04/26/17 08:12 04/26/17 08:12 04/26/17 08:12 04/26/17 08:12 Intake and Output: 04/26/17 04/26/17 06:59 18:59 Intake Total 1500 Balance 1500 - Medications Medications: Current Medications Bisoprolol Fumarate/HCTZ (Ziac 2.5-6.25 Mg) 1 tab PO DAILY [facility] Last Admin: 04/25/17 10:14 Dose: Not Given Imipenem/Cilastatin Sodium 500 (mg/ Sodium Chloride) 100 mls @ 100 mls/hr IVPB Q6H [facility] Last Admin: 04/26/17 02:05 Dose: 100 mls/hr Potassium Chloride (Potassium Chloride 20 Meq/100 Ml) 20 meq in 100 mls @ 50 mls/hr IVPB ONCE ONE Stop: 04/26/17 10:21 Pantoprazole Sodium (Protonix Inj) 40 mg IVP DAILY [facility] Last Admin: 04/25/17 10:13 Dose: Not Given Polyethylene Glycol (Miralax) 17 gm PO DAILY [facility] Last Admin: 04/25/17 10:12 Dose: Not Given Sennosides (Senokot Tab) 8.6 mg PO DAILY [facility] Last Admin: 04/25/17 10:13 Dose: Not Given - Labs Labs: 04/26/17 07:40 04/26/17 07:40 PT 13.3 SECONDS (9.7-12.2) H 04/22/17 16:50 INR 1.2 04/22/17 16:50 APTT 32 SECONDS (21-34) 04/22/17 16:50 - Constitutional Appears: No Acute Distress - Head Exam Head Exam: ATRAUMATIC, NORMAL INSPECTION, NORMOCEPHALIC - Eye Exam Eye Exam: EOMI, Scleral icterus - ENT Exam ENT Exam: Mucous Membranes Dry - Respiratory Exam Respiratory Exam: NORMAL BREATHING PATTERN. absent: Respiratory Distress - GI/Abdominal Exam GI & Abdominal Exam: Soft. absent: Distended, Guarding, Rigid, Tenderness - Extremities Exam Extremities Exam: absent: Calf Tenderness, Pedal Edema - Neurological Exam Neurological Exam: Alert, Oriented x3 - Psychiatric Exam Psychiatric exam: Normal Affect, Normal Mood - Skin Skin Exam: Dry, Intact Assessment and Plan - Assessment and Plan (Free Text) Assessment: 81F w/ choledocholithiasis s/p ERCP and multiple stents -TBili trending up today, 16.2 -Continue IVF, IVAbx, Pain control -F/U GI plans -Plan is for cholecystectomy once cleared by GI team, surgery currently postponed as pt. may need further ERCP DW Dr. Bharat Cisneros, PGY3
[2017-04-26] MEDS: Bisoprolol-HCTZ 2.5-6.25 mg Tab PO SCH (09:38)
[2017-04-26] MEDS: POLYETHYLENE GLYCOL 3350 17 GM/Dose PACKET PO SCH (09:38)
--- NOTE | 2017-04-26 09:50 | CP.PCM.PN ---
<Gena Neff - Last Filed: 04/26/17 10:03> Subjective - Date & Time of Evaluation Date of Evaluation: 04/26/17 Time of Evaluation: 07:00 - Subjective Subjective: GI Fellow PGY4 Progress Note Pt seen and examined bedside, doing well with no issues overnight. Pt denies fevers, chills, abdominal pain, nausea, or vomiting. Pt does feel a little bloated. ROS: A 12pt ROS was obtained and was negative except as above Objective - Vital Signs/Intake and Output Vital Signs (last 24 hours): Temp Pulse Resp BP Pulse Ox 98.2 F 80 20 147/73 99 04/26/17 08:12 04/26/17 08:12 04/26/17 08:12 04/26/17 08:12 04/26/17 08:12 Intake and Output: 04/26/17 04/26/17 06:59 18:59 Intake Total 1500 Balance 1500 - Medications Medications: Current Medications Bisoprolol Fumarate/HCTZ (Ziac 2.5-6.25 Mg) 1 tab PO DAILY [facility] Last Admin: 04/26/17 09:38 Dose: 1 tab Imipenem/Cilastatin Sodium 500 (mg/ Sodium Chloride) 100 mls @ 100 mls/hr IVPB Q6H [facility] Last Admin: 04/26/17 08:54 Dose: 100 mls/hr Potassium Chloride (Potassium Chloride 20 Meq/100 Ml) 20 meq in 100 mls @ 50 mls/hr IVPB ONCE ONE Stop: 04/26/17 10:21 Last Admin: 04/26/17 08:55 Dose: 50 mls/hr Pantoprazole Sodium (Protonix Inj) 40 mg IVP DAILY [facility] Last Admin: 04/26/17 09:38 Dose: 40 mg Polyethylene Glycol (Miralax) 17 gm PO DAILY [facility] Last Admin: 04/26/17 09:38 Dose: 17 gm Sennosides (Senokot Tab) 8.6 mg PO DAILY [facility] Last Admin: 04/26/17 09:38 Dose: 8.6 mg - Labs Labs: 04/26/17 07:40 04/26/17 07:40 PT 13.3 SECONDS (9.7-12.2) H 04/22/17 16:50 INR 1.2 04/22/17 16:50 APTT 32 SECONDS (21-34) 04/22/17 16:50 - Constitutional Appears: Well, No Acute Distress - Head Exam Head Exam: ATRAUMATIC, NORMAL INSPECTION, NORMOCEPHALIC - Eye Exam Eye Exam: EOMI, Normal appearance, PERRL, Scleral icterus - ENT Exam ENT Exam: Mucous Membranes Moist, Normal Exam - Neck Exam Neck Exam: Normal Inspection - Respiratory Exam Respiratory Exam: Decreased Breath Sounds, NORMAL BREATHING PATTERN - Cardiovascular Exam Cardiovascular Exam: RRR, +S1, +S2 - GI/Abdominal Exam GI & Abdominal Exam: Soft, Normal Bowel Sounds. absent: Guarding, Rigid, Tenderness - Rectal Exam Rectal Exam: Deferred - Extremities Exam Extremities Exam: Normal Inspection - Back Exam Back Exam: NORMAL INSPECTION - Neurological Exam Neurological Exam: Alert, Awake, Oriented x3 - Psychiatric Exam Psychiatric exam: Normal Affect, Normal Mood - Skin Skin Exam: Dry, Intact, Warm Additional comments: jaundice Assessment and Plan - Assessment and Plan (Free Text) Assessment: 81 year old female with h/o cholelithiasis, choledocholithiasis and cholangitis recently s/p ERCP with Spyglass/EHL and stent placement now readmitted with recurrent jaundice. Pt is s/p repeat ERCP with sphincterostomy, lithotrypsy, 2 plastic stents in CBD. 1. Choledocholithiasis 2. Biliary obstruction 3. Transaminitis Plan: -Pt with elevated Tbili, patient needs repeat ERCP -Surgery for cholecystectomy has been canceled -Pt is scheduled for ERCP procedure tomorrow at [facility] -Start on clear liquids today and NPO after midnight for procedure -Consent is signed and in chart -Continue antibiotics to prevent cholangitis -Continue supportive care and will follow pt closely <Harsh Jackson - Last Filed: 04/26/17 11:12> Objective - Vital Signs/Intake and Output Vital Signs (last 24 hours): Temp Pulse Resp BP Pulse Ox 98.2 F 80 20 147/73 99 04/26/17 08:12 04/26/17 08:12 04/26/17 08:12 04/26/17 08:12 04/26/17 08:12 Intake and Output: 04/26/17 04/26/17 06:59 18:59 Intake Total 1500 Balance 1500 - Medications Medications: Current Medications Bisoprolol Fumarate/HCTZ (Ziac 2.5-6.25 Mg) 1 tab PO DAILY [facility] Last Admin: 04/26/17 09:38 Dose: 1 tab Imipenem/Cilastatin Sodium 500 (mg/ Sodium Chloride) 100 mls @ 100 mls/hr IVPB Q6H [facility] Last Admin: 04/26/17 08:54 Dose: 100 mls/hr Pantoprazole Sodium (Protonix Inj) 40 mg IVP DAILY [facility] Last Admin: 04/26/17 09:38 Dose: 40 mg Polyethylene Glycol (Miralax) 17 gm PO DAILY [facility] Last Admin: 04/26/17 09:38 Dose: 17 gm Sennosides (Senokot Tab) 8.6 mg PO DAILY [facility] Last Admin: 04/26/17 09:38 Dose: 8.6 mg - Labs Labs: 04/26/17 07:40 04/26/17 07:40 PT 13.3 SECONDS (9.7-12.2) H 04/22/17 16:50 INR 1.2 04/22/17 16:50 APTT 32 SECONDS (21-34) 04/22/17 16:50 Attending/Attestation - Attestation I have personally seen and examined this patient.: Yes I have fully participated in the care of the patient.: Yes I have reviewed all pertinent clinical information, including history, physical exam and plan: Yes Notes (Text): 04/26/17 11:07 I have seen and examined patient with GI fellow. No acute events overnight, she is seen resting in bed comfortably. She denies abdominal pain, nausea, vomiting, diarrhea, fever/chills. She is hungry and asking for her diet to be advanced. Review of vitals from today are normal. Choledocholithiasis, s/p recent ERCP with repeat yesterday along with EHL and biliary stent placement Jaundice Transaminitis, hyperbilirubinemia - Clear liquid diet as tolerated - Bilirubin and LFTs continue to rise, possibly related to malpositioned biliary stent. Will require repeat ERCP for further investigation prior to surgical intervention. Will schedule for tomorrow at [place] with Dr. Merlos and discuss with surgical team. - Continue with antibiotic therapy - Continue to monitor LFTs - Patient will eventually require cholecystectomy following resolution of obstructive jaundice. Will continue to monitor patient clinical course. - NPO after midnight
[2017-04-26] MEDS: Dextrose 5%/0.45% NS 1,000 ML IV SCH (15:50)
--- NOTE | 2017-04-27 00:26 | PN ---
SUBJECTIVE: The patient is seen today, 04/26/2017. She still has generalized weakness and deep jaundice. PHYSICAL EXAMINATION: VITAL SIGNS: Blood pressure is 147/73, temperature is 98.2, respiratory rate of 20, and pulse 80. HEENT: Pupils are equal and reactive to light. Icteric sclerae. NECK: Supple. No JVD. No carotid bruits. No lymph node. No thyromegaly. CHEST AND LUNGS: Bilateral symmetrical expansion. Good air exchange. No rales. No rhonchi. CARDIOVASCULAR SYSTEM: PMI not localized. S1 and S2. No additional sounds. ABDOMEN: Normoactive bowel sounds. No tenderness. No organomegaly. No masses. EXTREMITIES: No cyanosis. No clubbing. No edema. CENTRAL NERVOUS SYSTEM: Alert, awake, and oriented x3. No neurological deficits could be appreciated. ASSESSMENT: 1. Obstructive jaundice with increasing bilirubin, status post two ERCPs during the last 2 weeks. 2. Choledocholithiasis. PLAN: Continue current IV antibiotics and the patient is for repeated ERCP tomorrow morning and we will supplement potassium also. Jp Purvis MD
[2017-04-27] MEDS: Dextrose 5%/0.45% NS 1,000 ML IV SCH (01:18)
--- NOTE | 2017-04-27 07:30 | CP.PCM.PN ---
Subjective - Date & Time of Evaluation Date of Evaluation: 04/27/17 Time of Evaluation: 07:29 - Subjective Subjective: Patient was seen and examined at bedside in no acute distress. Patient laying comfortably in bed. She reports feeling hungry and has gas/gurgling in her abdomen. She has no other complaints and denies having abdominal pain, nausea, vomiting. She states she had 3 normal bowel movements yesterday. 12 point review of systems otherwise negative. Objective - Vital Signs/Intake and Output Vital Signs (last 24 hours): Temp Pulse Resp BP Pulse Ox 98 F 70 20 164/72 H 99 04/27/17 07:17 04/27/17 07:17 04/27/17 07:17 04/27/17 07:17 04/27/17 07:17 Intake and Output: 04/27/17 04/27/17 06:59 18:59 Intake Total 1900 Balance 1900 - Medications Medications: Current Medications Bisoprolol Fumarate/HCTZ (Ziac 2.5-6.25 Mg) 1 tab PO DAILY [facility] Last Admin: 04/26/17 09:38 Dose: 1 tab Imipenem/Cilastatin Sodium 500 (mg/ Sodium Chloride) 100 mls @ 100 mls/hr IVPB Q6H [facility] Last Admin: 04/27/17 01:16 Dose: 100 mls/hr Dextrose/Sodium Chloride (Dextrose 5%/0.45% Ns 1000 Ml) 1,000 mls @ 100 mls/hr IV .Q10H [facility] Last Admin: 04/27/17 01:18 Dose: 100 mls/hr Pantoprazole Sodium (Protonix Inj) 40 mg IVP DAILY [facility] Last Admin: 04/26/17 09:38 Dose: 40 mg Polyethylene Glycol (Miralax) 17 gm PO DAILY [facility] Last Admin: 04/26/17 09:38 Dose: 17 gm Sennosides (Senokot Tab) 8.6 mg PO DAILY [facility] Last Admin: 04/26/17 09:38 Dose: 8.6 mg - Labs Labs: 04/26/17 07:40 04/26/17 07:40 PT 13.3 SECONDS (9.7-12.2) H 04/22/17 16:50 INR 1.2 04/22/17 16:50 APTT 32 SECONDS (21-34) 04/22/17 16:50 - Head Exam Head Exam: ATRAUMATIC, NORMAL INSPECTION - Eye Exam Eye Exam: EOMI, Normal appearance - ENT Exam ENT Exam: Mucous Membranes Moist - Respiratory Exam Respiratory Exam: Clear to Ausculation Bilateral, NORMAL BREATHING PATTERN. absent: Rales, Rhonchi, Wheezes - Cardiovascular Exam Cardiovascular Exam: +S1, +S2. absent: Bradycardia, Tachycardia - GI/Abdominal Exam GI & Abdominal Exam: Soft, Normal Bowel Sounds. absent: Distended, Tenderness - Extremities Exam Extremities Exam: Normal Inspection. absent: Pedal Edema, Tenderness - Neurological Exam Neurological Exam: Alert, Awake, Oriented x3 - Psychiatric Exam Psychiatric exam: Normal Affect, Normal Mood - Skin Skin Exam: Dry, Intact, Normal Color, Warm Assessment and Plan - Assessment and Plan (Free Text) Assessment: 81 year old female with choledocholithiasis, s/p ERCP with sphincterotomy [place] [facility] [place]. - Scheduled for repeat ERCP [place] [facility] [place]. - Plan is for cholecystectomy once cleared by GI team. - Continue medical management.
[2017-04-27 07:41] LABS: INR 1.4
[2017-04-27 07:44] LABS: HEMATOCRIT 29.6 % (34.0-47.0); MEAN CELL VOLUME 93.1 fL (81.0-99.0); MEAN CORPUSCULAR HGB CONC 35.5 g/dL (33.0-37.0); MEAN PLATELET VOLUME 8.6 fL (7.2-11.7); RED CELL DISTRIBUTION WIDTH 15.1 % (11.5-14.5); WHITE BLOOD COUNT 9.3 K/uL (4.8-10.8)
[2017-04-27 08:18] LABS: CHLORIDE 105 mmol/L (98-107)
[2017-04-27 08:19] LABS: POTASSIUM 3.2 mmol/L (3.6-5.2); SODIUM 139 mmol/L (132-148)
[2017-04-27 08:21] LABS: ALB/GLOB RATIO 0.8 (1.0-2.1); AST/SGOT 294 U/L (14-36); CARBON DIOXIDE 22 mmol/L (22-30); GFR AFRICAN-AMERICAN > 60; TOTAL PROTEIN 7.2 g/dL (6.3-8.3)
[2017-04-27 08:22] LABS: ALKALINE PHOSPHATASE 472 U/L (38-126); ALT/SGPT 170 U/L (9-52); BLOOD UREA NITROGEN 3 mg/dL (7-17); CALCIUM 8.4 mg/dl (8.6-10.4); GLUCOSE,RANDOM 105 mg/dL (65-105)
[2017-04-27 08:36] LABS: MAGNESIUM 1.8 mg/dL (1.6-2.3); PHOSPHOROUS 2.4 mg/dL (2.5-4.5)
[2017-04-27] MEDS: POLYETHYLENE GLYCOL 3350 17 GM/Dose PACKET PO SCH (10:00)
[2017-04-27] MEDS: Bisoprolol-HCTZ 2.5-6.25 mg Tab PO SCH (10:01)
[2017-04-27] MEDS: Potassium Chl 40 mEq in D5-1/2 1,000 ML IV SCH ×3 (11:20→20:21)
[2017-04-28] MEDS: Potassium Chl 40 mEq in D5-1/2 1,000 ML IV SCH ×3 (06:17→22:32)
--- NOTE | 2017-04-28 08:49 | CP.PCM.PN ---
<Gena Neff - Last Filed: 04/28/17 12:26> Subjective - Date & Time of Evaluation Date of Evaluation: 04/28/17 Time of Evaluation: 06:45 - Subjective Subjective: GI Fellow PGY4 Progress Note Pt seen and examined bedside, doing well with no issues overnight. Pt denies fevers, chills, abdominal pain, nausea, or vomiting. Pt reports having regular BM and passing gas. ROS: A 12pt ROS was obtained and was negative except as above Objective - Vital Signs/Intake and Output Vital Signs (last 24 hours): Temp Pulse Resp BP Pulse Ox 98.1 F 75 20 148/78 97 04/28/17 07:55 04/28/17 07:55 04/28/17 07:55 04/28/17 07:55 04/28/17 07:55 Intake and Output: 04/28/17 04/28/17 06:59 18:59 Intake Total 1780 Balance 1780 - Medications Medications: Current Medications Bisoprolol Fumarate/HCTZ (Ziac 2.5-6.25 Mg) 1 tab PO DAILY [facility] Last Admin: 04/27/17 10:01 Dose: Not Given Imipenem/Cilastatin Sodium 500 (mg/ Sodium Chloride) 100 mls @ 100 mls/hr IVPB Q6H [facility] Last Admin: 04/28/17 08:15 Dose: 100 mls/hr Potassium Chloride/Dextrose/Sod Cl (Potassium Chl 40 Meq In D5-1/2ns) 1,000 mls @ 100 mls/hr IV .Q10H [facility] Last Admin: 04/28/17 06:17 Dose: 100 mls/hr Pantoprazole Sodium (Protonix Inj) 40 mg IVP DAILY [facility] Last Admin: 04/27/17 10:00 Dose: 40 mg Polyethylene Glycol (Miralax) 17 gm PO DAILY [facility] Last Admin: 04/27/17 10:00 Dose: Not Given Sennosides (Senokot Tab) 8.6 mg PO DAILY [facility] Last Admin: 04/27/17 10:00 Dose: Not Given - Labs Labs: 04/27/17 07:20 04/27/17 07:20 PT 15.3 SECONDS (9.7-12.2) H 04/27/17 07:20 INR 1.4 04/27/17 07:20 APTT 32 SECONDS (21-34) 04/22/17 16:50 - Constitutional Appears: Well, Non-toxic, No Acute Distress - Head Exam Head Exam: ATRAUMATIC, NORMAL INSPECTION, NORMOCEPHALIC - Eye Exam Eye Exam: EOMI, Normal appearance, PERRL Pupil Exam: PERRL - ENT Exam ENT Exam: Mucous Membranes Moist, Normal Exam - Respiratory Exam Respiratory Exam: Clear to Ausculation Bilateral, NORMAL BREATHING PATTERN - Cardiovascular Exam Cardiovascular Exam: RRR, +S1, +S2 - GI/Abdominal Exam GI & Abdominal Exam: Soft, Normal Bowel Sounds. absent: Distended, Tenderness, Organomegaly - Rectal Exam Rectal Exam: Deferred - Extremities Exam Extremities Exam: Full ROM, Normal Inspection - Back Exam Back Exam: NORMAL INSPECTION - Neurological Exam Neurological Exam: Alert, Awake, Oriented x3 - Psychiatric Exam Psychiatric exam: Normal Affect, Normal Mood - Skin Skin Exam: Dry, Intact, Normal Color, Warm Assessment and Plan - Assessment and Plan (Free Text) Assessment: 81 year old female with h/o cholelithiasis, choledocholithiasis and cholangitis recently s/p ERCP with Spyglass/EHL and stent placement now readmitted with recurrent jaundice. Pt is s/p repeat ERCP with sphincterostomy, lithotrypsy, 2 plastic stents in CBD. 1. Choledocholithiasis 2. Biliary obstruction Plan: -s/p ERCP with plastic stent placement and debris removal -Surgery for cholecystectomy today -Continue antibiotics to prevent cholangitis -TBili continues to be elevated, will monitor and if continue to trend upward will order further imaging -Will continue to follow pt closely <Harsh Jackson - Last Filed: 04/28/17 16:32> Objective - Vital Signs/Intake and Output Vital Signs (last 24 hours): Temp Pulse Resp BP Pulse Ox 97.6 F 80 20 153/71 H 97 04/28/17 12:49 04/28/17 12:49 04/28/17 12:49 04/28/17 12:49 04/28/17 12:49 Intake and Output: 04/28/17 04/28/17 06:59 18:59 Intake Total 1780 900 Output Total 80 Balance 1780 820 - Medications Medications: Current Medications Bisoprolol Fumarate/HCTZ (Ziac 2.5-6.25 Mg) 1 tab PO DAILY [facility] Last Admin: 04/28/17 09:25 Dose: 1 tab Enoxaparin Sodium (Lovenox) 30 mg SC DAILY [facility] Imipenem/Cilastatin Sodium 500 (mg/ Sodium Chloride) 100 mls @ 100 mls/hr IVPB Q6H [facility] Last Admin: 04/28/17 14:03 Dose: 100 mls/hr Potassium Chloride/Dextrose/Sod Cl (Potassium Chl 40 Meq In D5-1/2ns) 1,000 mls @ 100 mls/hr IV .Q10H [facility] Last Admin: 04/28/17 06:17 Dose: 100 mls/hr Morphine Sulfate (Morphine) 2 mg IVP Q4 PRN PRN Reason: Pain, moderate (4-7) Last Admin: 04/28/17 14:12 Dose: 2 mg Pantoprazole Sodium (Protonix Inj) 40 mg IVP DAILY [facility] Last Admin: 04/28/17 10:04 Dose: Not Given Polyethylene Glycol (Miralax) 17 gm PO DAILY [facility] Last Admin: 04/28/17 10:04 Dose: Not Given Sennosides (Senokot Tab) 8.6 mg PO DAILY [facility] Last Admin: 04/28/17 10:04 Dose: Not Given - Labs Labs: 04/28/17 11:15 04/28/17 08:47 PT 15.3 SECONDS (9.7-12.2) H 04/27/17 07:20 INR 1.4 04/27/17 07:20 APTT 32 SECONDS (21-34) 04/22/17 16:50 Attending/Attestation - Attestation I have personally seen and examined this patient.: Yes I have fully participated in the care of the patient.: Yes I have reviewed all pertinent clinical information, including history, physical exam and plan: Yes Notes (Text): 04/28/17 16:29 I have seen and examined patient with GI fellow. No acute events overnight, she is seen in bed resting comfortably. She denies abdominal pain, nausea, vomiting, diarrhea, fever/chills. She is scheduled for cholecystectomy today. Review of vitals from today are normal. Choledocholithiasis, s/p ERCP with EHL, sphincterotomy, and biliary stent placement Jaundice - NPO - Patient planned for cholecystectomy today by surgical team, will await results and recommendations - Continue with antibiotic therapy - LFTs, bilirubin remain elevated, continue to monitor - Will continue to monitor patient clinical course
[2017-04-28 08:59] LABS: HEMATOCRIT 28.8 % (34.0-47.0); MEAN CELL VOLUME 93.4 fL (81.0-99.0); MEAN CORPUSCULAR HEMOGLOBIN 33.1 pg (27.0-31.0); MEAN CORPUSCULAR HGB CONC 35.4 g/dL (33.0-37.0); MEAN PLATELET VOLUME 8.2 fL (7.2-11.7); RED CELL DISTRIBUTION WIDTH 15.5 % (11.5-14.5); WHITE BLOOD COUNT 8.7 K/uL (4.8-10.8)
--- NOTE | 2017-04-28 09:01 | RAD ---
PROCEDURE: CHEST RADIOGRAPH, 1 VIEW HISTORY: preop COMPARISON: 04/23/2017 FINDINGS: LUNGS: Persistent transverse linear oblique opacity projecting over the right upper to mid lung zone suggestive for dense platelike atelectasis. Diffuse increased interstitial lung markings throughout both lungs. Mild scattered nodularity within the visualized lung cutler. PLEURA: No pneumothorax or pleural fluid seen. CARDIOVASCULAR: Tortuous aorta. Mild cardiomegaly. OSSEOUS STRUCTURES: No significant abnormalities. VISUALIZED UPPER ABDOMEN: Normal. OTHER FINDINGS: None. IMPRESSION: Persistent transverse linear oblique opacity projecting over the right upper to mid lung zone suggestive for dense platelike atelectasis. Diffuse increased interstitial lung markings throughout both lungs. Mild scattered nodularity within the visualized lung cutler.
[2017-04-28 09:15] LABS: CHLORIDE 108 mmol/L (98-107)
[2017-04-28 09:16] LABS: POTASSIUM 3.6 mmol/L (3.6-5.2); SODIUM 141 mmol/L (132-148)
[2017-04-28 09:18] LABS: ALB/GLOB RATIO 0.8 (1.0-2.1); ALKALINE PHOSPHATASE 465 U/L (38-126); AST/SGOT 252 U/L (14-36); BLOOD UREA NITROGEN 5 mg/dL (7-17); CARBON DIOXIDE 22 mmol/L (22-30); GFR AFRICAN-AMERICAN > 60; GLUCOSE,RANDOM 109 mg/dL (65-105); TOTAL PROTEIN 7.2 g/dL (6.3-8.3)
[2017-04-28 09:19] LABS: ALT/SGPT 153 U/L (9-52); CALCIUM 8.4 mg/dl (8.6-10.4)
[2017-04-28 09:20] LABS: BILIRUBIN,TOTAL 16.9 mg/dL (0.2-1.3)
[2017-04-28] MEDS: Bisoprolol-HCTZ 2.5-6.25 mg Tab PO SCH (09:25)
[2017-04-28] MEDS ORDERED: Lactated Ringer's 1,000 ML IV ONE (09:57)
[2017-04-28] MEDS ORDERED: Propofol 10 mg/ml Inj (20 ML) ONE (09:58)
[2017-04-28] MEDS ORDERED: Succinylcholine Chloride 20 mg/ml Syr (5 ml) IV ONE (09:58)
[2017-04-28] MEDS ORDERED: Bupivacaine HCl 0.5% PF (10 ml) Inj ONE ×2 (10:02→11:10)
[2017-04-28] MEDS: POLYETHYLENE GLYCOL 3350 17 GM/Dose PACKET PO SCH (10:04)
[2017-04-28] MEDS ORDERED: Neostigmine Methylsulfate 3mg/3ml Syringe IV ONE (11:07)
[2017-04-28] MEDS ORDERED: HYDROmorphone 0.5 mg/0.5 ml ISec IVP PRN (11:17)
--- NOTE | 2017-04-28 11:26 | PCM.SURG1 ---
<Jada Cisneros - Last Filed: 04/28/17 11:24> Surgeon's Initial Post Op Note - Surgeon's Notes Surgeon: Dr. Nicholson Tray Packer: Dr. Cisneros PGY3; Dr. Fletcher PGY2 Type of Anesthesia: General Endo Anesthesia Administered By: Brenda Mixon Pre-Operative Diagnosis: Choledocholithiasis, Cholecystitis Operative Findings: see operative report Post-Operative Diagnosis: same Operation Performed: Laparoscopic Cholecystectomy Specimen/Specimens Removed: gallbladder Estimated Blood Loss: EBL {In ML}: 20 Blood Products Given: N/A Drains Used: Jatin Negor Post-Op Condition: Good Date of Surgery/Procedure: 04/28/17 Time of Surgery/Procedure: 11:26 <Jeremiah Nicholson - Last Filed: 04/28/17 11:30> Surgeon's Initial Post Op Note - Surgeon's Notes Operative Findings: Gallbladder susupicious for cancer, unable to clip cystic duct due to severe scarring. CBD stones milked up and removed
[2017-04-29] MEDS: Potassium Chl 40 mEq in D5-1/2 1,000 ML IV SCH ×4 (02:30→23:00)
--- NOTE | 2017-04-29 07:06 | CP.PCM.PN ---
<Kobe Coughlin - Last Filed: 04/29/17 07:34> Subjective - Date & Time of Evaluation Date of Evaluation: 04/29/17 Time of Evaluation: 06:45 - Subjective Subjective: PGY5 GI Fellow Progress Note Patient seen and examined bedside this morning. The patient states that she has some soreness at her surgical sites. Tolerated procedure well yesterday. Did not have appetite and thus has not eaten thusfar. No new events overnight. 12 system ROS performed and negative except where stated. Objective - Vital Signs/Intake and Output Vital Signs (last 24 hours): Temp Pulse Resp BP Pulse Ox 97.7 F 86 20 124/67 96 04/28/17 23:14 04/28/17 23:14 04/28/17 23:14 04/28/17 23:14 04/28/17 23:14 Intake and Output: 04/29/17 04/29/17 06:59 18:59 Intake Total 2040 Output Total 60 Balance 1979 - Medications Medications: Current Medications Bisoprolol Fumarate/HCTZ (Ziac 2.5-6.25 Mg) 1 tab PO DAILY [facility] Last Admin: 04/28/17 09:25 Dose: 1 tab Enoxaparin Sodium (Lovenox) 30 mg SC DAILY [facility] Imipenem/Cilastatin Sodium 500 (mg/ Sodium Chloride) 100 mls @ 100 mls/hr IVPB Q6H [facility] Last Admin: 04/29/17 02:30 Dose: 100 mls/hr Potassium Chloride/Dextrose/Sod Cl (Potassium Chl 40 Meq In D5-1/2ns) 1,000 mls @ 100 mls/hr IV .Q10H [facility] Last Admin: 04/28/17 22:32 Dose: 100 mls/hr Morphine Sulfate (Morphine) 2 mg IVP Q4 PRN PRN Reason: Pain, moderate (4-7) Last Admin: 04/28/17 14:12 Dose: 2 mg Pantoprazole Sodium (Protonix Inj) 40 mg IVP DAILY [facility] Last Admin: 04/28/17 10:04 Dose: Not Given Polyethylene Glycol (Miralax) 17 gm PO DAILY [facility] Last Admin: 04/28/17 10:04 Dose: Not Given Sennosides (Senokot Tab) 8.6 mg PO DAILY [facility] Last Admin: 04/28/17 10:04 Dose: Not Given - Labs Labs: 04/28/17 11:15 04/28/17 08:47 PT 15.3 SECONDS (9.7-12.2) H 04/27/17 07:20 INR 1.4 04/27/17 07:20 APTT 32 SECONDS (21-34) 04/22/17 16:50 - Constitutional Appears: No Acute Distress - Eye Exam Eye Exam: EOMI, PERRL, Scleral icterus - ENT Exam ENT Exam: Mucous Membranes Moist - Respiratory Exam Respiratory Exam: Clear to Ausculation Bilateral. absent: Rales, Rhonchi, Wheezes - Cardiovascular Exam Cardiovascular Exam: RRR, +S1, +S2 Additional comments: GARRETT drain in place, small volume sero-sanguinous discharge - GI/Abdominal Exam GI & Abdominal Exam: Soft, Tenderness (at surgical sites), Normal Bowel Sounds. absent: Distended, Firm, Guarding, Rigid, Organomegaly - Extremities Exam Extremities Exam: Normal Inspection. absent: Pedal Edema - Neurological Exam Neurological Exam: Alert, Awake, Oriented x3 - Psychiatric Exam Psychiatric exam: Normal Affect, Normal Mood - Skin Skin Exam: Dry, Warm Assessment and Plan - Assessment and Plan (Free Text) Assessment: Patient is an 81yo female with PMHx significant for HTN, HLD, cholelithiasis/ choledocolithiasis and cholangitis s/p repeat ERCP with SpyGlass/EHL biliary/ stent placement who has been re-admitted with epigastric pain and jaundice -Cholelithiasis/choledocolithiasis s/p ERCP with SpyGlass with EHL and removal of stones/debris; now s/p laparoscopic cholecystectomy POD#1 -Direct hyperbilirubinemia 2/2 above Plan: -S/P laparoscopic cholecystectomy POD#1 -Discussed with surgical team, case technically difficult with concern for malignancy given gross appearance of gallbladder/adjacent structures -Awaiting pathology on resected gallbladder -Awaiting AM lab work -No plan for repeat ERCP at this juncture -Continue to monitor clinical course -Diet as tolerated <Adam Merlos - Last Filed: 04/29/17 07:43> Objective - Vital Signs/Intake and Output Vital Signs (last 24 hours): Temp Pulse Resp BP Pulse Ox 97.7 F 86 20 124/67 96 04/28/17 23:14 04/28/17 23:14 04/28/17 23:14 04/28/17 23:14 04/28/17 23:14 Intake and Output: 04/29/17 04/29/17 06:59 18:59 Intake Total 2039 Output Total 60 Balance 1979 - Medications Medications: Current Medications Bisoprolol Fumarate/HCTZ (Ziac 2.5-6.25 Mg) 1 tab PO DAILY [facility] Last Admin: 04/28/17 09:25 Dose: 1 tab Enoxaparin Sodium (Lovenox) 30 mg SC DAILY [facility] Imipenem/Cilastatin Sodium 500 (mg/ Sodium Chloride) 100 mls @ 100 mls/hr IVPB Q6H [facility] Last Admin: 04/29/17 02:30 Dose: 100 mls/hr Potassium Chloride/Dextrose/Sod Cl (Potassium Chl 40 Meq In D5-1/2ns) 1,000 mls @ 100 mls/hr IV .Q10H [facility] Last Admin: 04/28/17 22:32 Dose: 100 mls/hr Morphine Sulfate (Morphine) 2 mg IVP Q4 PRN PRN Reason: Pain, moderate (4-7) Last Admin: 04/28/17 14:12 Dose: 2 mg Pantoprazole Sodium (Protonix Inj) 40 mg IVP DAILY [facility] Last Admin: 04/28/17 10:04 Dose: Not Given Polyethylene Glycol (Miralax) 17 gm PO DAILY [facility] Last Admin: 04/28/17 10:04 Dose: Not Given Sennosides (Senokot Tab) 8.6 mg PO DAILY [facility] Last Admin: 04/28/17 10:04 Dose: Not Given - Labs Labs: 04/28/17 11:15 04/28/17 08:47 PT 15.3 SECONDS (9.7-12.2) H 04/27/17 07:20 INR 1.4 04/27/17 07:20 APTT 32 SECONDS (21-34) 04/22/17 16:50 Attending/Attestation - Attestation I have personally seen and examined this patient.: Yes I have fully participated in the care of the patient.: Yes I have reviewed all pertinent clinical information, including history, physical exam and plan: Yes Notes (Text): 04/29/17 07:41 81 year old female with h/o HTN , HLD, Cholelithiasis, extensive choledocholithiasis s/p ERCPs with spyglass / EHL and placement of biliary stent , now s/p lap cholecystectomy POD1. 1. Choledocholithiasis 2. Biliary obstruction 3. Cholelithiasis Plan: -s/p ERCP with Spyglass/EHL and stent -S/P laparoscopic cholecystectomy POD#1 -intraop concern over possible malignancy -await pathology -await labs to see trend of bilirubin -diet per surgery -continue antibiotics
[2017-04-29] MEDS ORDERED: Oxycodone/Acetaminophen 5/325 mg Tab PO PRN ×2 (07:50→07:51)
--- NOTE | 2017-04-29 07:56 | CP.PCM.PN ---
Subjective - Date & Time of Evaluation Date of Evaluation: 04/29/17 Time of Evaluation: 07:54 - Subjective Subjective: Surgery Pt s&e. Pt underwent surgery yesterday and tolerated it well. Pt has appropriate pain. Denies F/C/N/V/D/CP/SOB. + void. Objective - Vital Signs/Intake and Output Vital Signs (last 24 hours): Temp Pulse Resp BP Pulse Ox 97.7 F 86 20 124/67 96 04/28/17 23:14 04/28/17 23:14 04/28/17 23:14 04/28/17 23:14 04/28/17 23:14 Intake and Output: 04/29/17 04/29/17 06:59 18:59 Intake Total 2039 Output Total 60 Balance 1979 - Medications Medications: Current Medications Bisoprolol Fumarate/HCTZ (Ziac 2.5-6.25 Mg) 1 tab PO DAILY [facility] Last Admin: 04/28/17 09:25 Dose: 1 tab Enoxaparin Sodium (Lovenox) 30 mg SC DAILY [facility] Imipenem/Cilastatin Sodium 500 (mg/ Sodium Chloride) 100 mls @ 100 mls/hr IVPB Q6H [facility] Last Admin: 04/29/17 07:52 Dose: 100 mls/hr Potassium Chloride/Dextrose/Sod Cl (Potassium Chl 40 Meq In D5-1/2ns) 1,000 mls @ 100 mls/hr IV .Q10H [facility] Last Admin: 04/28/17 22:32 Dose: 100 mls/hr Morphine Sulfate (Morphine) 2 mg IVP Q4 PRN PRN Reason: Pain, moderate (4-7) Last Admin: 04/28/17 14:12 Dose: 2 mg Oxycodone/Acetaminophen (Percocet 5/325 Mg Tab) 2 tab PO Q4H PRN PRN Reason: Pain, Mild (1-3) Stop: 05/02/17 07:51 Pantoprazole Sodium (Protonix Inj) 40 mg IVP DAILY [facility] Last Admin: 04/28/17 10:04 Dose: Not Given Polyethylene Glycol (Miralax) 17 gm PO DAILY [facility] Last Admin: 04/28/17 10:04 Dose: Not Given Sennosides (Senokot Tab) 8.6 mg PO DAILY [facility] Last Admin: 04/28/17 10:04 Dose: Not Given - Labs Labs: 04/28/17 11:15 04/28/17 08:47 PT 15.3 SECONDS (9.7-12.2) H 04/27/17 07:20 INR 1.4 04/27/17 07:20 APTT 32 SECONDS (21-34) 04/22/17 16:50 - Constitutional Appears: No Acute Distress - Head Exam Head Exam: ATRAUMATIC, NORMAL INSPECTION, NORMOCEPHALIC - Eye Exam Eye Exam: EOMI, PERRL, Scleral icterus Pupil Exam: NORMAL ACCOMODATION, PERRL - ENT Exam ENT Exam: Mucous Membranes Moist, Normal Exam - Neck Exam Neck Exam: Full ROM, Normal Inspection. absent: Lymphadenopathy - Respiratory Exam Respiratory Exam: NORMAL BREATHING PATTERN - Cardiovascular Exam Cardiovascular Exam: REGULAR RHYTHM, +S1 - GI/Abdominal Exam GI & Abdominal Exam: Soft, Tenderness, Normal Bowel Sounds. absent: Distended, Firm, Guarding, Rigid, Organomegaly, Pulsatile Mass, Rebound Additional comments: Dressing C/D/I. Drain in place: 150cc serobilious - Extremities Exam Extremities Exam: Full ROM, Normal Inspection - Back Exam Back Exam: NORMAL INSPECTION - Neurological Exam Neurological Exam: Alert, Awake, CN II-XII Intact, Oriented x3 - Psychiatric Exam Psychiatric exam: Normal Affect, Normal Mood - Skin Skin Exam: Dry, Intact, Warm. absent: Erythema Additional comments: jennifer Assessment and Plan - Assessment and Plan (Free Text) Assessment: Choledocolithiasis , cholecystitis POD 1 s/p lap marlyn -Medical management -F/U path -Monitor labs -Pain control -Nausea control -ABX -encourage ambulation/ IS -Regular diet Will DEMETRIS Nicholson
[2017-04-29 09:06] LABS: HEMATOCRIT 26.9 % (34.0-47.0); MEAN CELL VOLUME 94.1 fL (81.0-99.0); MEAN CORPUSCULAR HEMOGLOBIN 32.8 pg (27.0-31.0); MEAN CORPUSCULAR HGB CONC 34.8 g/dL (33.0-37.0); MEAN PLATELET VOLUME 8.6 fL (7.2-11.7); RED CELL DISTRIBUTION WIDTH 15.7 % (11.5-14.5); WHITE BLOOD COUNT 12.7 K/uL (4.8-10.8)
[2017-04-29 09:07] LABS: IRON 18 ug/dL (37-170)
[2017-04-29 09:38] LABS: LYMPH # 1.5 K/uL (1.0-4.3)
[2017-04-29 09:39] LABS: EOS # 0.4 K/uL (0.0-0.7); MONO # 0.8 K/uL (0.0-0.8)
[2017-04-29 09:51] LABS: CHLORIDE 101 mmol/L (98-107); POTASSIUM 3.9 mmol/L (3.6-5.2); SODIUM 135 mmol/L (132-148)
[2017-04-29 09:53] LABS: ALB/GLOB RATIO 0.7 (1.0-2.1); AST/SGOT 204 U/L (14-36); BILIRUBIN,TOTAL 14.2 mg/dL (0.2-1.3); CARBON DIOXIDE 24 mmol/L (22-30); GFR AFRICAN-AMERICAN > 60; TOTAL PROTEIN 6.7 g/dL (6.3-8.3)
[2017-04-29 09:54] LABS: ALKALINE PHOSPHATASE 391 U/L (38-126); ALT/SGPT 122 U/L (9-52); BLOOD UREA NITROGEN 5 mg/dL (7-17); CALCIUM 8.6 mg/dl (8.6-10.4); GLUCOSE,RANDOM 105 mg/dL (65-105)
[2017-04-29] MEDS: Bisoprolol-HCTZ 2.5-6.25 mg Tab PO SCH (10:14)
[2017-04-29] MEDS: Enoxaparin 30 mg Syringe SC SCH (10:14)
[2017-04-29] MEDS: POLYETHYLENE GLYCOL 3350 17 GM/Dose PACKET PO SCH (10:14)
[2017-04-30] MEDS: Potassium Chl 40 mEq in D5-1/2 1,000 ML IV SCH (08:31)
--- NOTE | 2017-04-30 09:06 | CP.PCM.PN ---
<Gena Neff - Last Filed: 04/30/17 10:35> Subjective - Date & Time of Evaluation Date of Evaluation: 04/30/17 Time of Evaluation: 08:00 - Subjective Subjective: GI Fellow PGY4 Progress Note Patient seen and examined at bedside this morning, says she is feeling better this morning. Pt is waiting to have a BM after a laxative this am. Denies abdominal pain, N/V, fevers, chills. No new events overnight. 12 system ROS performed and negative except where stated. Objective - Vital Signs/Intake and Output Vital Signs (last 24 hours): Temp Pulse Resp BP Pulse Ox 98 F 84 20 158/79 H 100 04/30/17 00:05 04/30/17 00:05 04/30/17 00:05 04/30/17 00:05 04/30/17 00:05 Intake and Output: 04/30/17 04/30/17 06:59 18:59 Intake Total 2250 Output Total 50 Balance 2200 - Medications Medications: Current Medications Bisoprolol Fumarate/HCTZ (Ziac 2.5-6.25 Mg) 1 tab PO DAILY [facility] Last Admin: 04/29/17 10:14 Dose: 1 tab Enoxaparin Sodium (Lovenox) 30 mg SC DAILY [facility] Last Admin: 04/29/17 10:14 Dose: 30 mg Imipenem/Cilastatin Sodium 500 (mg/ Sodium Chloride) 100 mls @ 100 mls/hr IVPB Q6H [facility] Last Admin: 04/30/17 08:31 Dose: 100 mls/hr Potassium Chloride/Dextrose/Sod Cl (Potassium Chl 40 Meq In D5-1/2ns) 1,000 mls @ 100 mls/hr IV .Q10H [facility] Last Admin: 04/30/17 08:31 Dose: 100 mls/hr Morphine Sulfate (Morphine) 2 mg IVP Q4 PRN PRN Reason: Pain, moderate (4-7) Last Admin: 04/28/17 14:12 Dose: 2 mg Oxycodone/Acetaminophen (Percocet 5/325 Mg Tab) 2 tab PO Q4H PRN PRN Reason: Pain, Mild (1-3) Stop: 05/02/17 07:51 Pantoprazole Sodium (Protonix Ec Tab) 40 mg PO DAILY [facility] Polyethylene Glycol (Miralax) 17 gm PO DAILY [facility] Last Admin: 04/29/17 10:14 Dose: 17 gm Sennosides (Senokot Tab) 8.6 mg PO DAILY [facility] Last Admin: 04/29/17 10:14 Dose: 8.6 mg - Labs Labs: 04/29/17 08:41 04/29/17 09:39 PT 15.3 SECONDS (9.7-12.2) H 04/27/17 07:20 INR 1.4 04/27/17 07:20 APTT 32 SECONDS (21-34) 04/22/17 16:50 - Constitutional Appears: Well, Non-toxic, No Acute Distress - Head Exam Head Exam: ATRAUMATIC, NORMAL INSPECTION, NORMOCEPHALIC - Eye Exam Eye Exam: EOMI, Normal appearance, PERRL Pupil Exam: PERRL - ENT Exam ENT Exam: Mucous Membranes Moist, Normal Exam - Neck Exam Neck Exam: Full ROM, Normal Inspection - Respiratory Exam Respiratory Exam: Clear to Ausculation Bilateral, NORMAL BREATHING PATTERN - Cardiovascular Exam Cardiovascular Exam: RRR, +S1, +S2 - GI/Abdominal Exam GI & Abdominal Exam: Soft, Normal Bowel Sounds. absent: Distended, Firm, Guarding, Rigid, Tenderness, Organomegaly - Rectal Exam Rectal Exam: Deferred - Extremities Exam Extremities Exam: Full ROM, Normal Inspection - Back Exam Back Exam: NORMAL INSPECTION - Neurological Exam Neurological Exam: Alert, Awake, Oriented x3 - Psychiatric Exam Psychiatric exam: Normal Affect, Normal Mood - Skin Skin Exam: Dry, Intact, Normal Color, Warm Assessment and Plan - Assessment and Plan (Free Text) Assessment: This is a 81 year old female with h/o HTN , HLD, Cholelithiasis, choledocholithiasis s/p ERCPs with spyglass / EHL and placement of biliary stent , now s/p lap cholecystectomy. 1. Choledocholithiasis 2. Biliary obstruction 3. Cholelithiasis Plan: -Continue supportive care -s/p ERCP with Spyglass/EHL and stent -s/p laparoscopic cholecystectomy POD#2 -Concern for possible gallbladder malignancy, awaiting pathology -Tbilirubin trending down -Advance diet as tolerated -Continue antibiotics per surgery -Please call with any questions or concerns <Harsh Jackson Y - Last Filed: 04/30/17 10:47> Objective - Vital Signs/Intake and Output Vital Signs (last 24 hours): Temp Pulse Resp BP Pulse Ox 98 F 84 20 158/79 H 100 04/30/17 00:05 04/30/17 00:05 04/30/17 00:05 04/30/17 00:05 04/30/17 00:05 Intake and Output: 04/30/17 04/30/17 06:59 18:59 Intake Total 2250 Output Total 50 Balance 2200 - Medications Medications: Current Medications Bisoprolol Fumarate/HCTZ (Ziac 2.5-6.25 Mg) 1 tab PO DAILY [facility] Last Admin: 04/29/17 10:14 Dose: 1 tab Enoxaparin Sodium (Lovenox) 30 mg SC DAILY [facility] Last Admin: 04/29/17 10:14 Dose: 30 mg Imipenem/Cilastatin Sodium 500 (mg/ Sodium Chloride) 100 mls @ 100 mls/hr IVPB Q6H [facility] Last Admin: 04/30/17 08:31 Dose: 100 mls/hr Potassium Chloride/Dextrose/Sod Cl (Potassium Chl 40 Meq In D5-1/2ns) 1,000 mls @ 100 mls/hr IV .Q10H [facility] Last Admin: 04/30/17 08:31 Dose: 100 mls/hr Morphine Sulfate (Morphine) 2 mg IVP Q4 PRN PRN Reason: Pain, moderate (4-7) Last Admin: 04/28/17 14:12 Dose: 2 mg Oxycodone/Acetaminophen (Percocet 5/325 Mg Tab) 2 tab PO Q4H PRN PRN Reason: Pain, Mild (1-3) Stop: 05/02/17 07:51 Pantoprazole Sodium (Protonix Ec Tab) 40 mg PO DAILY [facility] Polyethylene Glycol (Miralax) 17 gm PO DAILY [facility] Last Admin: 04/29/17 10:14 Dose: 17 gm Sennosides (Senokot Tab) 8.6 mg PO DAILY [facility] Last Admin: 04/29/17 10:14 Dose: 8.6 mg - Labs Labs: 04/29/17 08:41 04/29/17 09:39 PT 15.3 SECONDS (9.7-12.2) H 04/27/17 07:20 INR 1.4 04/27/17 07:20 APTT 32 SECONDS (21-34) 04/22/17 16:50 Attending/Attestation - Attestation I have personally seen and examined this patient.: Yes I have fully participated in the care of the patient.: Yes I have reviewed all pertinent clinical information, including history, physical exam and plan: Yes Notes (Text): 04/30/17 10:44 I have seen and examined patient with GI fellow. Patient is seen ambulating in room, appears quite comfortable. She denies abdominal pain, nausea, vomiting, fever/chills. Tolerating PO regular diet without difficulty. Review of vitals from today shows elevated BP. HTN Hyperlipidemia Choledocholithiasis s/p ERCP with stone extraction and stent placement Cholecystitis s/p cholecystectomy - Diet as tolerated - Continue with antibiotic therapy - Awaiting surgical pathology given intraoperative concern for gallbladder cancer - Continue to monitor LFTs, bilirubin - Further management as per surgical team. No further planned GI intervention, will sign off case. Patient has follow up appointment in May with Dr. Merlos for biliary stent removal. Please reconsult as necessary, thank you.
--- NOTE | 2017-04-30 09:39 | CARD ---
APPROVED REPORT EKG Measurement Heart [id number] HI 176P [id number] <Conclusion> Sinus rhythm with occasional premature ventricular complexes Left posterior fascicular block Abnormal ECG
[2017-04-30] MEDS: Pantoprazole 40 mg EC Tab PO SCH (10:52)
[2017-04-30] MEDS: Enoxaparin 30 mg Syringe SC SCH (10:52)
[2017-04-30] MEDS: Bisoprolol-HCTZ 2.5-6.25 mg Tab PO SCH (10:52)
[2017-04-30] MEDS: POLYETHYLENE GLYCOL 3350 17 GM/Dose PACKET PO SCH (10:53)
--- NOTE | 2017-04-30 12:28 | PN ---
SUBJECTIVE: The patient was seen today on 04/29/2017. She is postoperative day #1. PHYSICAL EXAMINATION: VITAL SIGNS: Blood pressure was 178/68, temperature 97.7, respiratory rate 20, and pulse 79. HEENT: Icteric sclerae. NECK: Supple. No JVD. No carotid bruits. No lymph node. No thyromegaly. CHEST AND LUNGS: Bilateral symmetrical expansion. Good air exchange. No rales. No rhonchi. CARDIOVASCULAR SYSTEM: PMI not localized. S1 and S2. No additional sounds. ABDOMEN: Normoactive bowel sounds. No tenderness. No organomegaly. No masses. The patient has a GARRETT drainage with scanty amount. EXTREMITIES: No cyanosis. No clubbing. No edema. CENTRAL NERVOUS SYSTEM: Alert, awake, and oriented x2. No neurological deficits could be appreciated. ASSESSMENT: 1. Status post lap marlyn cystectomy. 2. Choledocholithiasis with obstructive jaundice. 3. Status post ascending cholangitis. 4. Hypertension. PLAN: Continue current IV antibiotics and follow ID and surgical recommendations. Advanced diet as tolerated. Jp Purvis MD
--- NOTE | 2017-04-30 13:54 | PN ---
DATE: DAILY PROGRESS NOTE SUBJECTIVE: The patient is today on 04/30/2017. She is not in any cardiopulmonary distress. The patient is tolerating diet so far. PHYSICAL EXAMINATION: VITAL SIGNS: Blood pressure 158/79, temperature 98, respiratory rate 20, and pulse 84. HEENT: Pupils are equal and reactive to light. Normal-appearing mucosa of the conjunctivae, oropharynx and nasal membrane mucosa. NECK: Supple. No JVD. No carotid bruits. No lymph node. No thyromegaly. CHEST AND LUNGS: Bilateral symmetrical expansion. Good air exchange. No rales. No rhonchi. CARDIOVASCULAR SYSTEM: PMI not localized. S1 and S2. No additional sounds. ABDOMEN: Normoactive bowel sounds. No tenderness. No organomegaly. No masses. EXTREMITIES: No cyanosis. No clubbing. No edema. AUTO SPECIALTY SERVICES MANAGER: Alert, awake, and oriented x2. No neurological deficit could be appreciated. ASSESSMENT: 1. Choledocholithiasis with obstructive jaundice. 2. Status post laparoscopic cholecystectomy. 3. Hypertension. PLAN: We will monitor hepatic function, as well as electrolytes. Continue current IV antibiotics. Follow surgical recommendations. Jp Purvis MD
[2017-04-30 14:08] LABS: CHLORIDE 101 mmol/L (98-107)
[2017-04-30 14:09] LABS: POTASSIUM 3.9 mmol/L (3.6-5.2); SODIUM 138 mmol/L (132-148)
[2017-04-30 14:11] LABS: ALB/GLOB RATIO 0.8 (1.0-2.1); ALKALINE PHOSPHATASE 416 U/L (38-126); AST/SGOT 122 U/L (14-36); BILIRUBIN,TOTAL 8.7 mg/dL (0.2-1.3); CARBON DIOXIDE 25 mmol/L (22-30); GFR AFRICAN-AMERICAN > 60; TOTAL PROTEIN 7.2 g/dL (6.3-8.3)
[2017-04-30 14:12] LABS: ALT/SGPT 104 U/L (9-52); BLOOD UREA NITROGEN 5 mg/dL (7-17); CALCIUM 8.9 mg/dl (8.6-10.4); GLUCOSE,RANDOM 121 mg/dL (65-105)
[2017-04-30 14:13] LABS: HEMATOCRIT 29.9 % (34.0-47.0); MEAN CELL VOLUME 94.4 fL (81.0-99.0); MEAN CORPUSCULAR HEMOGLOBIN 32.1 pg (27.0-31.0); MEAN CORPUSCULAR HGB CONC 33.9 g/dL (33.0-37.0); MEAN PLATELET VOLUME 8.4 fL (7.2-11.7); RED CELL DISTRIBUTION WIDTH 16.1 % (11.5-14.5); WHITE BLOOD COUNT 11.3 K/uL (4.8-10.8)
[2017-04-30 14:38] LABS: EOS # 0.5 K/uL (0.0-0.7); LYMPH # 2.7 K/uL (1.0-4.3); MONO # 0.6 K/uL (0.0-0.8)
--- NOTE | 2017-04-30 23:56 | CP.PCM.PN ---
Subjective - Date & Time of Evaluation Date of Evaluation: 04/30/17 Time of Evaluation: 07:00 - Subjective Subjective: GENERAL SURGERY PROGRESS NOTE FOR DR. DHILLON Patient seen and examined at bedside. She is tolerating her diet and denies nausea or vomiting. She is ambulating and using her IS. She denies abdominal pain and states that her soreness is gone. Objective - Vital Signs/Intake and Output Vital Signs (last 24 hours): Temp Pulse Resp BP Pulse Ox 98.2 F 80 20 177/82 H 100 04/30/17 15:00 04/30/17 19:37 04/30/17 19:37 04/30/17 19:37 04/30/17 19:37 Intake and Output: 04/30/17 05/01/17 18:59 06:59 Intake Total 1160 1100 Output Total 20 20 Balance 1140 1080 - Medications Medications: Current Medications Bisoprolol Fumarate/HCTZ (Ziac 2.5-6.25 Mg) 1 tab PO DAILY [facility] Last Admin: 04/30/17 10:52 Dose: 1 tab Enoxaparin Sodium (Lovenox) 30 mg SC DAILY [facility] Last Admin: 04/30/17 10:52 Dose: 30 mg Imipenem/Cilastatin Sodium 500 (mg/ Sodium Chloride) 100 mls @ 100 mls/hr IVPB Q6H [facility] Last Admin: 04/30/17 19:21 Dose: 100 mls/hr Losartan Potassium (Cozaar) 50 mg PO Q24H [facility] Last Admin: 04/30/17 21:15 Dose: 50 mg Morphine Sulfate (Morphine) 2 mg IVP Q4 PRN PRN Reason: Pain, moderate (4-7) Last Admin: 04/28/17 14:12 Dose: 2 mg Oxycodone/Acetaminophen (Percocet 5/325 Mg Tab) 2 tab PO Q4H PRN PRN Reason: Pain, Mild (1-3) Stop: 05/02/17 07:51 Pantoprazole Sodium (Protonix Ec Tab) 40 mg PO DAILY [facility] Last Admin: 04/30/17 10:52 Dose: 40 mg Polyethylene Glycol (Miralax) 17 gm PO DAILY [facility] Last Admin: 04/30/17 10:53 Dose: 17 gm Sennosides (Senokot Tab) 8.6 mg PO DAILY [facility] Last Admin: 04/30/17 10:52 Dose: 8.6 mg - Labs Labs: 04/30/17 13:54 04/30/17 13:54 PT 15.3 SECONDS (9.7-12.2) H 04/27/17 07:20 INR 1.4 04/27/17 07:20 APTT 32 SECONDS (21-34) 04/22/17 16:50 - Constitutional Appears: Non-toxic, No Acute Distress - Head Exam Head Exam: ATRAUMATIC, NORMAL INSPECTION - Eye Exam Eye Exam: EOMI, Scleral icterus - Respiratory Exam Respiratory Exam: NORMAL BREATHING PATTERN. absent: Respiratory Distress - Cardiovascular Exam Cardiovascular Exam: +S1, +S2 - GI/Abdominal Exam GI & Abdominal Exam: Soft, Tenderness (mildly tender at incision sites). absent : Distended, Firm, Guarding, Rigid, Rebound Additional comments: Shawn drain in place with 90cc output over past [address] over incisions - Neurological Exam Neurological Exam: Alert, Awake - Psychiatric Exam Psychiatric exam: Normal Affect, Normal Mood - Skin Skin Exam: Dry, Warm Assessment and Plan - Assessment and Plan (Free Text) Assessment: 81yo F with choledocholithiasis POD#2 s/p laparoscopic cholecystectomy - Afebrile, VSS - WBC 11.3 today - T bili decreased to 8.7 today from 14.2 - LFTs trending down - Possible removal of drain tomorrow - Will FU path - Discussed plan with Dr. Bharat Marrero PGY-3
[2017-05-01 07:43] LABS: HEMATOCRIT 30.2 % (34.0-47.0); MEAN CELL VOLUME 94.5 fL (81.0-99.0); MEAN CORPUSCULAR HEMOGLOBIN 32.3 pg (27.0-31.0); MEAN CORPUSCULAR HGB CONC 34.2 g/dL (33.0-37.0); MEAN PLATELET VOLUME 7.9 fL (7.2-11.7); RED CELL DISTRIBUTION WIDTH 16.2 % (11.5-14.5); WHITE BLOOD COUNT 10.4 K/uL (4.8-10.8)
[2017-05-01 07:57] LABS: CHLORIDE 103 mmol/L (98-107); POTASSIUM 3.7 mmol/L (3.6-5.2); SODIUM 140 mmol/L (132-148)
[2017-05-01 07:59] LABS: GFR AFRICAN-AMERICAN > 60
[2017-05-01 08:00] LABS: ALB/GLOB RATIO 0.8 (1.0-2.1); ALKALINE PHOSPHATASE 421 U/L (38-126); ALT/SGPT 88 U/L (9-52); AST/SGOT 106 U/L (14-36); BILIRUBIN,DIRECT 6.6 mg/dL (0.0-0.4); BILIRUBIN,TOTAL 8.1 mg/dL (0.2-1.3); BLOOD UREA NITROGEN 6 mg/dL (7-17); CALCIUM 8.9 mg/dl (8.6-10.4); CARBON DIOXIDE 24 mmol/L (22-30); GLUCOSE,RANDOM 92 mg/dL (65-105); TOTAL PROTEIN 7.2 g/dL (6.3-8.3)
[2017-05-01] MEDS: Enoxaparin 30 mg Syringe SC SCH (09:28)
[2017-05-01] MEDS: Pantoprazole 40 mg EC Tab PO SCH (09:28)
[2017-05-01] MEDS: Bisoprolol-HCTZ 2.5-6.25 mg Tab PO SCH (09:28)
[2017-05-01] MEDS: POLYETHYLENE GLYCOL 3350 17 GM/Dose PACKET PO SCH (09:28)
[2017-05-01 09:52] LABS: EOS # 0.9 K/uL (0.0-0.7); LYMPH # 3.7 K/uL (1.0-4.3); MONO # 1.4 K/uL (0.0-0.8)
--- NOTE | 2017-05-01 10:57 | CP.PCM.PN ---
Subjective - Date & Time of Evaluation Date of Evaluation: 05/01/17 Time of Evaluation: 07:00 - Subjective Subjective: General Surgery Dr. Nicholson Pt S&E @bedside. KAMERONEO. pt denies abd pain, F/C, N/V. tolerating diet. Shawn 60cc serosang overnight Objective - Vital Signs/Intake and Output Vital Signs (last 24 hours): Temp Pulse Resp BP Pulse Ox 98.2 F 82 20 162/90 H 99 05/01/17 09:02 05/01/17 09:02 05/01/17 09:02 05/01/17 09:02 05/01/17 09:02 Intake and Output: 05/01/17 05/01/17 06:59 18:59 Intake Total 1500 Output Total 40 Balance 1460 - Medications Medications: Current Medications Bisoprolol Fumarate/HCTZ (Ziac 2.5-6.25 Mg) 1 tab PO DAILY [facility] Last Admin: 05/01/17 09:28 Dose: 1 tab Enoxaparin Sodium (Lovenox) 30 mg SC DAILY [facility] Last Admin: 05/01/17 09:28 Dose: 30 mg Imipenem/Cilastatin Sodium 500 (mg/ Sodium Chloride) 100 mls @ 100 mls/hr IVPB Q6H [facility] Last Admin: 05/01/17 08:18 Dose: 100 mls/hr Losartan Potassium (Cozaar) 50 mg PO Q24H [facility] Last Admin: 04/30/17 21:15 Dose: 50 mg Morphine Sulfate (Morphine) 2 mg IVP Q4 PRN PRN Reason: Pain, moderate (4-7) Last Admin: 04/28/17 14:12 Dose: 2 mg Oxycodone/Acetaminophen (Percocet 5/325 Mg Tab) 2 tab PO Q4H PRN PRN Reason: Pain, Mild (1-3) Stop: 05/02/17 07:51 Pantoprazole Sodium (Protonix Ec Tab) 40 mg PO DAILY [facility] Last Admin: 05/01/17 09:28 Dose: 40 mg Polyethylene Glycol (Miralax) 17 gm PO DAILY [facility] Last Admin: 05/01/17 09:28 Dose: 17 gm Sennosides (Senokot Tab) 8.6 mg PO DAILY [facility] Last Admin: 05/01/17 09:28 Dose: 8.6 mg - Labs Labs: 05/01/17 07:28 05/01/17 07:25 PT 15.3 SECONDS (9.7-12.2) H 04/27/17 07:20 INR 1.4 04/27/17 07:20 APTT 32 SECONDS (21-34) 04/22/17 16:50 - Constitutional Appears: Non-toxic, No Acute Distress - Head Exam Head Exam: NORMAL INSPECTION - Eye Exam Eye Exam: Normal appearance - ENT Exam ENT Exam: Mucous Membranes Moist - Respiratory Exam Respiratory Exam: NORMAL BREATHING PATTERN. absent: Accessory Muscle Use, Respiratory Distress - Cardiovascular Exam Cardiovascular Exam: absent: Bradycardia, Tachycardia - GI/Abdominal Exam GI & Abdominal Exam: Soft. absent: Distended, Tenderness Additional comments: incisions c/d/i dressing stained - Extremities Exam Extremities Exam: Normal Inspection - Neurological Exam Neurological Exam: Alert, Awake, Oriented x3 - Psychiatric Exam Psychiatric exam: Normal Affect, Normal Mood - Skin Skin Exam: Dry, Intact, Warm Assessment and Plan - Assessment and Plan (Free Text) Assessment: 81 y/o F w/ choledocolithiasis POD#3 s/p lap marlyn - WBC, LFTs, T. Bili trending down - drain to be pulled by surgical technologist - f/u pathology - cont medical management - encourgae OOB to chair/Amb/IS use Pt discussed w/ Dr. Bharat Stephens DO PGY2
--- NOTE | 2017-05-01 22:27 | PN ---
DAILY PROGRESS NOTE DATE: 05/01/2017 SUBJECTIVE: The patient is seen today 05/01/2017. She is tolerating diet and no respiratory distress. PHYSICAL EXAMINATION: VITAL SIGNS: Blood pressure 146/76, temperature 98.9, respiratory rate 20, and pulse 76. HEENT: Pupils are equal and reactive to light. Normal appearing mucosa of the conjunctiva, oropharyngeal and nasal membrane mucosa. NECK: Supple. No JVD. No carotid bruits. No lymph node. No thyromegaly. CHEST AND LUNGS: Bilateral symmetrical expansion. Good air exchange. No rales, no rhonchi. CARDIOVASCULAR: PMI not localized. S1 and S2. No additional sounds. ABDOMEN: Normoactive bowel sounds. GARRETT drainage with very scanty amount. EXTREMITIES: No cyanosis, no clubbing, and no edema. CORRIDOR REDEVELOPMENT MANAGER: Alert, awake, and oriented x3. No neurological difficulty be appreciated. ASSESSMENT: 1. Obstructive jaundice secondary to choledocholithiasis status post repeated ERCP with stent placement and lithotripsy. 2. Status post laparoscopic cholecystectomy. PLAN: We will follow the pathology results. Monitor electrolytes and liver function test. Advance diet as tolerated. Pain management. Jp Purvis MD
--- NOTE | 2017-05-02 08:24 | CP.PCM.PN ---
Subjective - Date & Time of Evaluation Date of Evaluation: 05/02/17 Time of Evaluation: 08:20 - Subjective Subjective: General Surgery - Dr. Nicholson Pt S&E. WENDY. Pt is tolerating regular diet and ambulating on her own. Caio drain was removed yesterday. She denies any abdominal pain, N/V, F/C, SOB/Cp. Objective - Vital Signs/Intake and Output Vital Signs (last 24 hours): Temp Pulse Resp BP Pulse Ox 97.5 F L 78 20 170/80 H 98 05/02/17 00:00 05/02/17 00:00 05/02/17 00:00 05/02/17 00:00 05/02/17 00:00 Intake and Output: 05/02/17 05/02/17 06:59 18:59 Intake Total 350 250 Balance 350 250 - Medications Medications: Current Medications Bisoprolol Fumarate/HCTZ (Ziac 2.5-6.25 Mg) 1 tab PO DAILY [facility] Last Admin: 05/01/17 09:28 Dose: 1 tab Enoxaparin Sodium (Lovenox) 30 mg SC DAILY [facility] Last Admin: 05/01/17 09:28 Dose: 30 mg Imipenem/Cilastatin Sodium 500 (mg/ Sodium Chloride) 100 mls @ 100 mls/hr IVPB Q6H [facility] Last Admin: 05/02/17 02:00 Dose: 100 mls/hr Losartan Potassium (Cozaar) 50 mg PO Q24H [facility] Last Admin: 05/01/17 21:00 Dose: 50 mg Morphine Sulfate (Morphine) 2 mg IVP Q4 PRN PRN Reason: Pain, moderate (4-7) Last Admin: 04/28/17 14:12 Dose: 2 mg Pantoprazole Sodium (Protonix Ec Tab) 40 mg PO DAILY [facility] Last Admin: 05/01/17 09:28 Dose: 40 mg Polyethylene Glycol (Miralax) 17 gm PO DAILY [facility] Last Admin: 05/01/17 09:28 Dose: 17 gm Sennosides (Senokot Tab) 8.6 mg PO DAILY [facility] Last Admin: 05/01/17 09:28 Dose: 8.6 mg - Labs Labs: 05/01/17 07:28 05/01/17 07:25 PT 15.3 SECONDS (9.7-12.2) H 04/27/17 07:20 INR 1.4 04/27/17 07:20 APTT 32 SECONDS (21-34) 04/22/17 16:50 - Constitutional Appears: No Acute Distress - Head Exam Head Exam: ATRAUMATIC, NORMAL INSPECTION, NORMOCEPHALIC - Eye Exam Eye Exam: EOMI, Normal appearance - ENT Exam ENT Exam: Mucous Membranes Moist - Respiratory Exam Respiratory Exam: NORMAL BREATHING PATTERN. absent: Respiratory Distress - GI/Abdominal Exam GI & Abdominal Exam: Soft. absent: Distended, Firm, Guarding, Rigid, Tenderness , Rebound Additional comments: dressing over drain site C/D/I, incisions with dermabond - Neurological Exam Neurological Exam: Alert, Oriented x3 - Psychiatric Exam Psychiatric exam: Normal Affect, Normal Mood - Skin Skin Exam: Dry, Intact Assessment and Plan - Assessment and Plan (Free Text) Assessment: 81 y/o F w/ choledocolithiasis POD#4 s/p lap marlyn - Tolerating regular diet and ambulating - Drain removed yesterday - F/U AM Labs, if LFTs continue to trend down pt. can likely be clear for D/C - F/u Pathology - Encourage OOB/IS - Post op care explained to patient - she may remove drain dressing tomorrow and replace with bandaid as needed, incisions with dermabond and pt. may shower , no soaking/bathing in tub. F/U in office with Dr. Nicholson in 1 week. F/u with GI as instructed. Continue Regular diet and light activities. No heavy lifting >10lbs for [address] Bharat Cisneros PGY3
[2017-05-02] MEDS: Pantoprazole 40 mg EC Tab PO SCH (09:50)
[2017-05-02] MEDS: POLYETHYLENE GLYCOL 3350 17 GM/Dose PACKET PO SCH (09:50)
[2017-05-02] MEDS: Enoxaparin 30 mg Syringe SC SCH (09:50)
[2017-05-02] MEDS: Bisoprolol-HCTZ 2.5-6.25 mg Tab PO SCH (09:51)
[2017-05-02 11:13] LABS: BASO # 0.1 K/uL (0.0-0.2); BASO % 0.9 % (0.0-2.0); EOS # 0.5 K/uL (0.0-0.7); HEMATOCRIT 29.8 % (34.0-47.0); MEAN CELL VOLUME 95.2 fL (81.0-99.0); MEAN CORPUSCULAR HEMOGLOBIN 32.4 pg (27.0-31.0); MEAN PLATELET VOLUME 7.8 fL (7.2-11.7); MONO # 1.1 K/uL (0.0-0.8); NRBC % 0.1 % (0.0-2.0); RED CELL DISTRIBUTION WIDTH 16.4 % (11.5-14.5); WHITE BLOOD COUNT 8.5 K/uL (4.8-10.8)
[2017-05-02 11:20] LABS: CHLORIDE 100 mmol/L (98-107)
[2017-05-02 11:21] LABS: POTASSIUM 3.3 mmol/L (3.6-5.2); SODIUM 138 mmol/L (132-148)
[2017-05-02 11:23] LABS: GFR AFRICAN-AMERICAN > 60
[2017-05-02 11:24] LABS: ALB/GLOB RATIO 0.8 (1.0-2.1); ALKALINE PHOSPHATASE 396 U/L (38-126); ALT/SGPT 75 U/L (9-52); AST/SGOT 90 U/L (14-36); BILIRUBIN,TOTAL 6.2 mg/dL (0.2-1.3); BLOOD UREA NITROGEN 8 mg/dL (7-17); CALCIUM 8.9 mg/dl (8.6-10.4); CARBON DIOXIDE 25 mmol/L (22-30); GLUCOSE,RANDOM 114 mg/dL (65-105); TOTAL PROTEIN 7.3 g/dL (6.3-8.3)
[2017-05-02] MEDS ORDERED: Potassium Chloride 20 mEq ER Tab PO ONE (15:00)
--- NOTE | 2017-05-03 02:40 | PN ---
DATE: 05/02/2017 SUBJECTIVE: She is not in any cardiopulmonary distress. The patient is afebrile and tolerating diet. PHYSICAL EXAMINATION: VITAL SIGNS: Blood pressure is 153/73, temperature 98.3, respiratory rate 20 and pulse 70. HEENT: Pupils equal and reactive to light. Normal-appearing mucosa of the conjunctivae, oropharyngeal, and nasal membrane mucosa. NECK: Supple. No JVD. No carotid bruit. No lymph node. No thyromegaly. CHEST AND LUNGS: Bilaterally symmetrical expansion with good air exchange. No rales. No rhonchi. CARDIOVASCULAR SYSTEM: PMI not localized. S1 and S2. No additional sounds. ABDOMEN: Normoactive bowel sounds. No tenderness. No organomegaly. No masses. EXTREMITIES: No cyanosis. No clubbing. No edema. CENTRAL NERVOUS SYSTEM: Alert, awake, and oriented x3. No neurological deficits could be appreciated. ASSESSMENT: 1. Choledocholithiasis with improving obstructive jaundice. 2. Status post laparoscopic cholecystectomy. 3. Hypertension. PLAN: Continue current IV antibiotics and monitor the patient one more day and follow the pathology report. [facility] MD Yaniv
[2017-05-03 08:00] VITALS: O2SAT 98
[2017-05-03 08:30] LABS: CHLORIDE 101 mmol/L (98-107); POTASSIUM 3.6 mmol/L (3.6-5.2); SODIUM 139 mmol/L (132-148)
[2017-05-03 08:32] LABS: CARBON DIOXIDE 25 mmol/L (22-30); GFR AFRICAN-AMERICAN > 60
[2017-05-03 08:33] LABS: ALB/GLOB RATIO 0.8 (1.0-2.1); ALKALINE PHOSPHATASE 372 U/L (38-126); ALT/SGPT 66 U/L (9-52); AST/SGOT 89 U/L (14-36); BLOOD UREA NITROGEN 8 mg/dL (7-17); CALCIUM 8.7 mg/dl (8.6-10.4); GLUCOSE,RANDOM 88 mg/dL (65-105); TOTAL PROTEIN 6.7 g/dL (6.3-8.3)
[2017-05-03 08:37] LABS: BILIRUBIN,TOTAL 5.6 mg/dL (0.2-1.3)
--- NOTE | 2017-05-03 09:32 | CP.PCM.PN ---
Subjective - Date & Time of Evaluation Date of Evaluation: 05/03/17 Time of Evaluation: 09:30 - Subjective Subjective: General Surgery - Dr. Nicholson Pt S&EBernarda NGUYEN. PT denies any complaints this morning. She is tolerating regular diet and ambulating in the halls. No N/V, F/C, SOB/Cp Objective - Vital Signs/Intake and Output Vital Signs (last 24 hours): Temp Pulse Resp BP Pulse Ox 98.2 F 73 20 166/77 H 98 05/03/17 07:59 05/03/17 07:59 05/03/17 07:59 05/03/17 07:59 05/03/17 07:59 Intake and Output: 05/03/17 05/03/17 06:59 18:59 Intake Total 900 Balance 900 - Medications Medications: Current Medications Bisoprolol Fumarate/HCTZ (Ziac 2.5-6.25 Mg) 1 tab PO DAILY [facility] Last Admin: 05/02/17 09:51 Dose: 1 tab Enoxaparin Sodium (Lovenox) 30 mg SC DAILY [facility] Last Admin: 05/02/17 09:50 Dose: 30 mg Imipenem/Cilastatin Sodium 500 (mg/ Sodium Chloride) 100 mls @ 100 mls/hr IVPB Q6H [facility] Last Admin: 05/03/17 08:41 Dose: 100 mls/hr Losartan Potassium (Cozaar) 50 mg PO Q24H [facility] Last Admin: 05/02/17 20:50 Dose: 50 mg Pantoprazole Sodium (Protonix Ec Tab) 40 mg PO DAILY [facility] Last Admin: 05/02/17 09:50 Dose: 40 mg Polyethylene Glycol (Miralax) 17 gm PO DAILY [facility] Last Admin: 05/02/17 09:50 Dose: 17 gm Sennosides (Senokot Tab) 8.6 mg PO DAILY [facility] Last Admin: 05/02/17 09:51 Dose: 8.6 mg - Labs Labs: 05/02/17 11:06 05/03/17 07:44 PT 15.3 SECONDS (9.7-12.2) H 04/27/17 07:20 INR 1.4 04/27/17 07:20 APTT 32 SECONDS (21-34) 04/22/17 16:50 - Constitutional Appears: No Acute Distress - Head Exam Head Exam: ATRAUMATIC, NORMAL INSPECTION, NORMOCEPHALIC - Eye Exam Eye Exam: Normal appearance - Respiratory Exam Respiratory Exam: NORMAL BREATHING PATTERN. absent: Respiratory Distress - Cardiovascular Exam Cardiovascular Exam: REGULAR RHYTHM - GI/Abdominal Exam GI & Abdominal Exam: Soft. absent: Distended, Guarding, Tenderness Additional comments: incisions C/D/I with dermabond, drain removed and clean dressing in place - Neurological Exam Neurological Exam: Alert, Oriented x3 - Psychiatric Exam Psychiatric exam: Normal Affect, Normal Mood - Skin Skin Exam: Dry, Intact Assessment and Plan - Assessment and Plan (Free Text) Assessment: 81 y/o F w/ choledocolithiasis POD#5 s/p lap marlyn - Tolerating regular diet and ambulating - Tbili trending down, 5.6 today - F/u official Path report - Encourage OOB/IS Post op instructions- pt. may shower, no soaking/bathing in tub. F/U in office with Dr. Nicholson in 1 week. F/u with GI as scheduled for stent removal. Continue Regular diet and light activities. No heavy lifting >10lbs for [address] Bharat Cisneros PGY3
[2017-05-03] MEDS: POLYETHYLENE GLYCOL 3350 17 GM/Dose PACKET PO SCH (09:54)
[2017-05-03] MEDS: Pantoprazole 40 mg EC Tab PO SCH (09:54)
[2017-05-03] MEDS: Bisoprolol-HCTZ 2.5-6.25 mg Tab PO SCH (09:55)
[2017-05-03] MEDS: Enoxaparin 30 mg Syringe SC SCH (09:55)
--- NOTE | 2017-05-03 22:34 | PN ---
DAILY PROGRESS NOTE DATE: SUBJECTIVE: The patient is seen today on 05/03/2017. She is not in any cardiopulmonary distress. PHYSICAL EXAMINATION: VITAL SIGNS: Blood pressure is 138/66, temperature 99.3, respiratory rate 20, and pulse 63. HEENT: Pupils equal and reactive to light. Normal appearing mucosa of the conjunctivae, oropharyngeal, and nasal membrane mucosa. Icteric sclerae. NECK: Supple. No JVD. No carotid bruit. No lymph node. No thyromegaly. CHEST AND LUNGS: Bilaterally symmetrical expansion with good air exchange. No rales. No rhonchi. CARDIOVASCULAR SYSTEM: PMI not localized. S1 and S2. No additional sounds. ABDOMEN: Normoactive bowel sounds. No tenderness. No organomegaly. No masses. EXTREMITIES: No cyanosis. No clubbing. No edema. CENTRAL NERVOUS SYSTEM: Alert, awake, and oriented x3. No neurological deficits could be appreciated. ASSESSMENT: 1. Obstructive jaundice, choledocholithiasis status post multiple endoscopic retrograde cholangio-pancreatography with stent placement. 2. Status post laparoscopic cholecystectomy. PLAN: We are waiting for the final pathology report of the gall bladder surgery and continue current antibiotics and physical therapy. Advance diet as tolerated. Jp Purvis MD
[2017-05-04 07:53] VITALS: BP 137/69; PULSE 66; RESP 20; TEMP 98.1
[2017-05-04] MEDS: Pantoprazole 40 mg EC Tab PO SCH (09:23)
[2017-05-04] MEDS: Enoxaparin 30 mg Syringe SC SCH (09:24)
[2017-05-04] MEDS: POLYETHYLENE GLYCOL 3350 17 GM/Dose PACKET PO SCH (09:24)
[2017-05-04] MEDS: Bisoprolol-HCTZ 2.5-6.25 mg Tab PO SCH (10:10)
[2017-05-04 11:31] LABS: CHLORIDE 98 mmol/L (98-107); POTASSIUM 3.6 mmol/L (3.6-5.2); SODIUM 138 mmol/L (132-148)
[2017-05-04 11:33] LABS: BILIRUBIN,TOTAL 4.8 mg/dL (0.2-1.3); CARBON DIOXIDE 25 mmol/L (22-30); GFR AFRICAN-AMERICAN > 60
[2017-05-04 11:34] LABS: ALB/GLOB RATIO 0.9 (1.0-2.1); ALKALINE PHOSPHATASE 378 U/L (38-126); ALT/SGPT 70 U/L (9-52); AST/SGOT 89 U/L (14-36); BLOOD UREA NITROGEN 7 mg/dL (7-17); CALCIUM 8.8 mg/dl (8.6-10.4); GLUCOSE,RANDOM 104 mg/dL (65-105); TOTAL PROTEIN 7.7 g/dL (6.3-8.3)
--- NOTE | 2017-05-04 11:39 | CP.PCM.PN ---
Subjective - Date & Time of Evaluation Date of Evaluation: 05/04/17 Time of Evaluation: 11:40 - Subjective Subjective: Alert, awake, no pain, no acute distress. Objective - Vital Signs/Intake and Output Vital Signs (last 24 hours): Temp Pulse Resp BP Pulse Ox 98.1 F 66 20 137/69 98 05/04/17 07:51 05/04/17 07:51 05/04/17 07:51 05/04/17 07:51 05/04/17 07:51 Intake and Output: 05/04/17 05/04/17 06:59 18:59 Intake Total 800 Balance 800 - Medications Medications: Current Medications Bisoprolol Fumarate/HCTZ (Ziac 2.5-6.25 Mg) 1 tab PO DAILY [facility] Last Admin: 05/04/17 10:10 Dose: 1 tab Enoxaparin Sodium (Lovenox) 30 mg SC DAILY [facility] Last Admin: 05/04/17 09:24 Dose: 30 mg Imipenem/Cilastatin Sodium 500 (mg/ Sodium Chloride) 100 mls @ 100 mls/hr IVPB Q6H [facility] Last Admin: 05/04/17 08:57 Dose: 100 mls/hr Losartan Potassium (Cozaar) 50 mg PO Q24H [facility] Last Admin: 05/03/17 20:45 Dose: 50 mg Pantoprazole Sodium (Protonix Ec Tab) 40 mg PO DAILY [facility] Last Admin: 05/04/17 09:23 Dose: 40 mg Polyethylene Glycol (Miralax) 17 gm PO DAILY [facility] Last Admin: 05/04/17 09:24 Dose: 17 gm Sennosides (Senokot Tab) 8.6 mg PO DAILY [facility] Last Admin: 05/04/17 09:23 Dose: 8.6 mg - Labs Labs: 05/02/17 11:06 05/04/17 11:09 PT 15.3 SECONDS (9.7-12.2) H 04/27/17 07:20 INR 1.4 04/27/17 07:20 APTT 32 SECONDS (21-34) 04/22/17 16:50 Assessment and Plan - Assessment and Plan (Free Text) Assessment: Patient is seen and examined. Alert, pleasant , ambulating well. Denies any pain , tolerating diet. D/W DR Purvis, plan to discharge home with her daughter. Advised to follow up in the office in 1 week. Surgical follow up instructions given to the patient.
[2017-05-04 13:03] LABS: LKM-1 Ab (IgG) <=20.0 U (<=20.0)
--- NOTE | 2017-05-05 02:23 | DS ---
REASON FOR ADMISSION: This is an 81 years old female who was admitted for severe obstructive jaundice secondary to choledocholithiasis. COURSE OF HOSPITALIZATION: The patient was admitted to medical floor and she was started on IV antibiotic. The patient had a GI consult done by Dr. Merlos. The patient went to [facility] twice for ERCP with stent placement. The patient underwent also laparoscopic cholecystectomy. 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 The patient's postoperative course was uneventful and the bilirubin was coming down from 16 to 5. The patient was discharged home to follow up with oncology and with gastroenterology. The patient also was discharged to take Omnicef 300 mg twice a day for another 5 days. FINAL DIAGNOSES: Obstructive jaundice, choledocholithiasis, status post ascending cholangitis; adenocarcinoma of the gallbladder; cholelithiasis, and status post laparoscopic cholecystectomy. Jp Purvis MD
--- NOTE | 2017-05-09 15:06 | OP ---
PROCEDURE DATE: 04/28/2017 PREOPERATIVE DIAGNOSIS: Acute cholecystitis. POSTOPERATIVE DIAGNOSIS: Cholecystitis, possible cancer. PROCEDURE: Laparoscopic cholecystectomy. SURGEON: Dr. Nicholson. TRAINER: residential sales rep. TYPE OF ANESTHESIA: General endotracheal. FINDINGS: Severely abnormal gallbladder suspicious for cancer. ESTIMATED BLOOD LOSS: Minimal. COMPLICATIONS: None. DRAINS: GARRETT #10 in subhepatic space. SPECIMEN: Gallbladder sent to pathology. DESCRIPTION OF PROCEDURE: A surgical pause was conducted. The patient was placed under general endotracheal anesthesia supine on the operating table. The abdomen was prepped with ChloraPrep and draped in the usual manner. The periumbilical area was infiltrated with 0.5% Marcaine and 1% lidocaine. We placed a 10-mm blunt port in the superior umbilical fold using an open cutdown technique. The abdomen was insufflated with carbon dioxide gas to a pressure of 15 mmHg. Two 5-mm ports were placed in the anterior axillary and midclavicular line under laparoscopic guidance and after pre-injecting with 0.5% Marcaine and 1% lidocaine. A 5-mm port was placed in the subxiphoid region to the right of the falciform ligament. The gallbladder was grasped at the apex and the neck and retracted. The peritoneum over the cystic duct and artery was dissected away. The critical view of the structures was achieved. The cystic duct and artery were then clipped three times and then divided leaving two clips each on the patient side. The gallbladder was dissected from the liver bed using electrocautery and removed via the umbilical port via an Endobag. Pneumoperitoneum was reestablished. We irrigated the liver bed inspecting for hemostasis and the integrity of the clips. We then aspirated all excess fluid from the abdomen. The ports were removed and the sites inspected via the laparoscope for hemostasis. The fascia at the umbilicus was closed with a [id number] Vicryl. The wounds were irrigated and closed with 4-0 Biosyn subcuticularly. Skin adhesive was applied. The instrument, needle, and sponge counts were correct at the end of the case. The patient was transferred to the PACU in satisfactory condition Given the abnormal appearance of the gallbladder and possibility of a leak, a GARRETT drain was placed in subhepatic space and taken out through one of the port sites. Jeremiah Nicholson DO [facility] # [id number]
== END 2017-05-04 13:53 | disposition home or self-care (01) | DRG 418 ==
LOC: C.ER 14:51 → C.9E 17:19 → C.3T 20:51
PROVIDERS: ADMIT Internal Medicine; ATTEND Internal Medicine
PROC: 0FC98ZZ Extirpation of Matter from Common Bile Duct, Via Natural or Artificial Opening Endoscopic (ICD-10-PCS; 2017-04-25)
PROC: 0F798DZ Dilation of Common Bile Duct with Intraluminal Device, Via Natural or Artificial Opening Endoscopic (ICD-10-PCS; 2017-04-25)
PROC: 0FPB8DZ Removal of Intraluminal Device from Hepatobiliary Duct, Via Natural or Artificial Opening Endoscopic (ICD-10-PCS; 2017-04-27)
PROC: 0F798DZ Dilation of Common Bile Duct with Intraluminal Device, Via Natural or Artificial Opening Endoscopic (ICD-10-PCS; 2017-04-27)
PROC: 0FC98ZZ Extirpation of Matter from Common Bile Duct, Via Natural or Artificial Opening Endoscopic (ICD-10-PCS; 2017-04-27)
PROC: 0FT44ZZ Resection of Gallbladder, Percutaneous Endoscopic Approach (ICD-10-PCS; principal; 2017-04-28 15:00)
DX: C23 Malignant neoplasm of gallbladder (principal); K80.63 Calculus of gallbladder and bile duct with acute cholecystitis with obstruction; K80.65 Calculus of gallbladder and bile duct with chronic cholecystitis with obstruction; I10 Essential (primary) hypertension; E78.5 Hyperlipidemia, unspecified; K59.00 Constipation, unspecified

== ENCOUNTER 2017-07-22 18:30 | Inpatient (IN) | payer MEDICARE, BC ==
[2017-07-22 18:31] VITALS: BMI 25.2
--- NOTE | 2017-07-22 19:33 | C.PDOC ---
History Of Present Illness Patient is a 82 year old female with a history of metastatic gallbladder cancer is here because she was sent by her PMD for admission. She is seen by Dr. Merlos who suggested she get a second opinion of her metastatic disease. She recently had a CT scan of the abdomen/pelvis which showed a DVT in the left femoral vein. She was called by per PMD and told to come for admission. Patient has no pain, no lower extremity pain or swelling, also denies shortness of breath, palpitations, or chest pain. (Farhat Vasquez) History Per: Patient History/Exam Limitations: no limitations Onset/Duration Of Symptoms: Other Current Symptoms Are (Timing): Still Present Severity: None Pain Scale Rating Of: 0 Recent travel outside of the [place]: No Additional History Per: Patient Time Seen by Provider: 07/22/17 19:19 Chief Complaint (Nursing): Lower Extremity Problem/Injury Past Medical History - Medical History PMH: Gall Bladder Disease (stones common bile duct), HTN, Hypercholesterolemia, Hyperlipidemia Denies: Chronic Kidney Disease Surgical History: Cholecystectomy Denies: Pacemaker Family History: States: No Known Family Hx - Social History Hx Alcohol Use: Yes (used to drink occasionally-drank beer or bourbon)) Hx Substance Use: No - Immunization History Hx Tetanus Toxoid Vaccination: No Hx Influenza Vaccination: No Hx Pneumococcal Vaccination: No Vital Signs: Last Vital Signs Temp 97.7 F 07/22/17 18:42 Pulse 70 07/22/17 18:42 Resp 20 07/22/17 18:42 BP 163/74 H 07/22/17 18:42 Pulse Ox 98 07/22/17 19:45 - [facility] Procedures DILATION OF COMMON BILE DUCT WITH INTRALUMINAL DEVICE, ENDO (04/22/17) EXTIRPATION OF MATTER FROM COMMON BILE DUCT, ENDO (04/22/17) REMOVAL OF INTRALUMINAL DEVICE FROM HEPATOBILIARY DUCT, ENDO (04/22/17) RESECTION OF GALLBLADDER, PERCUTANEOUS ENDOSCOPIC APPROACH (04/22/17) Review Of Systems Constitutional: Negative for: Fever, Chills Respiratory: Negative for: Cough, Shortness of Breath Gastrointestinal: Negative for: Nausea, Vomiting, Abdominal Pain, Diarrhea Genitourinary: Negative for: Dysuria Skin: Negative for: Jaundice Neurological: Negative for: Weakness, Numbness Physical Exam - Physical Exam Appears: Non-toxic, No Acute Distress Skin: Normal Color, Warm, Dry Eye(s): bilateral: PERRL, EOMI Cardiovascular: Rhythm Regular Respiratory: Normal Breath Sounds, No Decreased Breath Sounds, No Accessory Muscle Use Gastrointestinal/Abdominal: Bowel Sounds, No Soft, No Tenderness Back: No CVA Tenderness, No Vertebral Tenderness Extremity: No Tenderness, No Pedal Edema, No Calf Tenderness, No Swelling Neurological/Psych: Oriented x3 ED Course And Treatment O2 Sat by Pulse Oximetry: 98 Medical Decision Making Medical Decision Making: Spoke with Dr. Mcdowell, patient will be admitted, therapeutic Lovenox given. Will do labs and order lower extremity duplex for the morning. Patient will be admitted. (Farhat Vasquez) Patient seen by resident and then evaluated by me. Agree with above history and physical. Mild scleral icterus. No leg swelling. No complaint of pain. Vitals WNL. Patient had CT for evaluation of metastatic disease that showed L femoral vein DVT. Dr. Purvis requesting lovenox and vascular surgery consult with admission to his service. Patient has no somatic complaints. (Lawanda Felipe) Disposition Discussed With : Jp Purvis Doctor Will See Patient In The: Hospital Counseled Patient/Family Regarding: Diagnosis - Disposition Disposition Time: 00:30 - Disposition Disposition: HOSPITALIZED Condition: FAIR Forms: [facility] (Setswana) - Clinical Impression Clinical Impression: Deep venous thrombosis of lower extremity
[2017-07-22] MEDS ORDERED: Enoxaparin 60 mg Syringe SC STA (19:36)
[2017-07-22] MEDS ORDERED: Enoxaparin 80 mg Syringe ONE (19:49)
[2017-07-22 20:15] LABS: BASO # 0.1 K/uL (0.0-0.2); BASO % 1.1 % (0.0-2.0); EOS # 0.3 K/uL (0.0-0.7); EOS % 4.8 % (0.0-4.0); LYMPH # 3.4 K/uL (1.0-4.3); LYMPH % 51.1 % (20.0-40.0); MEAN CELL VOLUME 93.1 fL (81.0-99.0); MEAN CORPUSCULAR HEMOGLOBIN 30.8 pg (27.0-31.0); MEAN CORPUSCULAR HGB CONC 33.1 g/dL (33.0-37.0); MEAN PLATELET VOLUME 8.9 fL (7.2-11.7); MONO # 0.6 K/uL (0.0-0.8); MONO % 8.8 % (0.0-10.0); RED CELL DISTRIBUTION WIDTH 14.1 % (11.5-14.5); WHITE BLOOD COUNT 6.7 K/uL (4.8-10.8)
[2017-07-22 20:27] LABS: ALB/GLOB RATIO 1.2 (1.0-2.1); ALKALINE PHOSPHATASE 71 U/L (38-126); ALT/SGPT 39 U/L (9-52); AST/SGOT 30 U/L (14-36); BILIRUBIN,TOTAL 0.6 mg/dL (0.2-1.3); BLOOD UREA NITROGEN 13 mg/dL (7-17); CALCIUM 8.6 mg/dl (8.6-10.4); CARBON DIOXIDE 27 mmol/L (22-30); CHLORIDE 107 mmol/L (98-107); GFR AFRICAN-AMERICAN > 60; GLUCOSE,RANDOM 98 mg/dL (65-105); MAGNESIUM 1.9 mg/dL (1.6-2.3); PHOSPHOROUS 2.4 mg/dL (2.5-4.5); POTASSIUM 3.6 mmol/L (3.6-5.2); SODIUM 141 mmol/L (132-148); TOTAL PROTEIN 7.4 g/dL (6.3-8.3)
[2017-07-23] MEDS: Bisoprolol-HCTZ 2.5-6.25 mg Tab PO SCH (09:30)
[2017-07-23] MEDS: Saccharomyces Boulardi 250 mg Cap PO SCH ×2 (09:30→17:49)
[2017-07-23] MEDS: Enoxaparin 80 mg Syringe SC SCH ×2 (09:31→21:34)
[2017-07-23] MEDS: POLYETHYLENE GLYCOL 3350 17 GM/Dose PACKET PO SCH (09:36)
--- NOTE | 2017-07-23 22:43 | CP.PCM.CON ---
History of Present Illness - History of Present Illness History of Present Illness: Vascular Surgery Consult note. Dr. Phelps 82yo F with PMHx of GB adenocarcinoma sent to [facility] for left Femoral DVT. Patient states that she was seen at [facility] on , 07/[address] scan. She received a call yesterday from [facility] stating that she has a left femoral DVT, she went to her PMD, Dr. Purvis and he sent her to [facility] for further treatment. She denies any complaints. Denies any lower extremity swelling, no pain. Denies any SOB, no CP. No N/V/D. No F/C. No paresthesias. No urinary changes. Patient has a hx of GB Adenocarcinoma as seen on pathology s/p cholecystectomy . She currently has Biliary stent as placed by Dr. Merlos on 04/27/17. PMD: Dr. Purvis PMHx: HTN, Metastatic Gallbladder adenocarcinoma PSHx: Cholecystectomy. Biliary stent Social Hx: Social ETOH use. Denies Tobacco. Denies illicit drugs NKDA Review of Systems - Review of Systems All systems: reviewed and no additional remarkable complaints except - Constitutional Constitutional: absent: Chills, Fever - Cardiovascular Cardiovascular: absent: Chest Pain, Dyspnea - Respiratory Respiratory: absent: Dyspnea - Gastrointestinal Gastrointestinal: absent: Abdominal Pain, Diarrhea, Nausea, Vomiting - Musculoskeletal Musculoskeletal: absent: Abnormal Gait, Joint Swelling, Muscle Weakness, Numbness Past Patient History - Infectious Disease Hx of Infectious Diseases: None - Past Medical History & Family History Past Medical History?: Yes - Past Social History Smoking Status: Never Smoked - CARDIAC Hx Hypercholesterolemia: Yes Hx Hypertension: Yes Hx Pacemaker: No - PULMONARY Hx Respiratory Disorders: No - NEUROLOGICAL Hx Neurological Disorder: No - HEENT Hx HEENT Problems: Yes (YELLOW SCHLERAE) - RENAL Hx Chronic Kidney Disease: No - ENDOCRINE/METABOLIC Hx Endocrine Disorders: No - HEMATOLOGICAL/ONCOLOGICAL Hx Blood Disorders: No Hx Blood Transfusions: No Hx Blood Transfusion Reaction: No - INTEGUMENTARY Hx Dermatological Problems: No - MUSCULOSKELETAL/RHEUMATOLOGICAL Hx Falls: No - GASTROINTESTINAL Hx Gall Bladder Disease: Yes (stones common bile duct) - GENITOURINARY/GYNECOLOGICAL Hx Genitourinary Disorders: No - PSYCHIATRIC Hx Substance Use: No - SURGICAL HISTORY Hx Cholecystectomy: Yes - ANESTHESIA Hx Anesthesia: Yes Hx Anesthesia Reactions: No Hx Malignant Hyperthermia: No Has any member of the family had a problem w/ anesthesia?: No Meds Allergies/Adverse Reactions: Allergies Allergy/AdvReac Type Severity Reaction Status Date / Time No Known Allergies Allergy Verified 07/22/17 18:42 - Medications Medications: Current Medications Acetaminophen (Tylenol 325mg Tab) 650 mg PO Q6 PRN PRN Reason: Pain, moderate (4-7) Bisoprolol Fumarate/HCTZ (Ziac 2.5-6.25 Mg) 1 tab PO DAILY [facility] Last Admin: 07/23/17 09:30 Dose: 1 tab Enoxaparin Sodium (Lovenox) 70 mg SC Q12 [facility] Last Admin: 07/23/17 21:34 Dose: 70 mg Losartan Potassium (Cozaar) 100 mg PO DAILY [facility] Last Admin: 07/23/17 09:36 Dose: Not Given Polyethylene Glycol (Miralax) 17 gm PO DAILY [facility] Last Admin: 07/23/17 09:36 Dose: Not Given Saccharomyces Boulardii (Florastor) 250 mg PO BID [facility] Last Admin: 07/23/17 17:49 Dose: 250 mg Physical Exam - Constitutional Appears: Well, Non-toxic, No Acute Distress - Head Exam Head Exam: ATRAUMATIC, NORMAL INSPECTION, NORMOCEPHALIC - Eye Exam Eye Exam: EOMI - ENT Exam ENT Exam: Mucous Membranes Moist - Respiratory Exam Respiratory Exam: NORMAL BREATHING PATTERN. absent: Accessory Muscle Use, Respiratory Distress - Cardiovascular Exam Cardiovascular Exam: RRR. absent: JVD - GI/Abdominal Exam GI & Abdominal Exam: Soft. absent: Distended, Guarding, Rebound, Rigid, Tenderness - Extremities Exam Extremities exam: Positive for: normal inspection, pedal pulses present. Negative for: calf tenderness, pedal edema - Neurological Exam Neurological exam: Alert, Normal Gait, Oriented x3 - Psychiatric Exam Psychiatric exam: Normal Affect, Normal Mood - Skin Skin Exam: Dry, Intact, Normal Color, Warm Results - Vital Signs Recent Vital Signs: Last Vital Signs Temp 98.1 F 07/23/17 16:00 Pulse 66 07/23/17 16:00 Resp 20 07/23/17 16:00 BP 123/65 07/23/17 16:00 Pulse Ox 97 07/23/17 16:00 - Labs Result Diagrams: 07/22/17 20:09 07/22/17 20:09 Assessment & Plan - Assessment and Plan (Free Text) Assessment: 82yo F with PMHx of Metastatic GB Adenocarcinoma now with reported left femoral vein DVT - Attempt to obtain records from [facility]. Patient wishes to discuss with family prior. - Continue with therapeutic Lovenox - Continue current medical management Further recs as per Dr. Lenin Almanzar PGY1 surgery pager: [phone]
[2017-07-24] MEDS: Enoxaparin 80 mg Syringe SC SCH ×2 (09:07→21:19)
[2017-07-24] MEDS: Bisoprolol-HCTZ 2.5-6.25 mg Tab PO SCH (09:08)
[2017-07-24] MEDS: Saccharomyces Boulardi 250 mg Cap PO SCH ×2 (09:08→17:25)
[2017-07-24] MEDS: POLYETHYLENE GLYCOL 3350 17 GM/Dose PACKET PO SCH (09:08)
[2017-07-24] MEDS: Lactated Ringer's 1,000 ML IV SCH (19:47)
[2017-07-25] MEDS: Lactated Ringer's 1,000 ML IV SCH ×2 (05:31→15:15)
--- NOTE | 2017-07-25 05:37 | HP ---
HISTORY OF PRESENT ILLNESS: This is an 82-year-old female with history of metastatic gallbladder carcinoma, was admitted for acute deep venous thrombosis of the left femoral vein. Patient was evaluated in [facility] for her condition. Patient had CT angiogram done and left femoral vein acute thrombus was incidentally found. Patient was brought to emergency room for evaluation and was admitted. Patient denies to have any pain or swelling of the lower extremities. Other review of systems negative. ALLERGIES: NO KNOWN ALLERGY. MEDICATIONS: Home medications include Benicar 40 mg daily, Ziac 2.5/6.25 mg daily. SOCIAL HISTORY: No history of smoking, EtOH, or substance abuse. FAMILY HISTORY: Noncontributory. PAST MEDICAL HISTORY: Metastatic gallbladder carcinoma and hypertension. PHYSICAL EXAMINATION: GENERAL: Patient is in bed comfortable, not in any cardiopulmonary distress. VITAL SIGNS: Blood pressure 130/70, temperature 98.2, respiratory rate 18, and pulse is 76. HEENT: Pupils equal, reactive to light. Normal appearing mucosa of the conjunctivae, oropharyngeal mucosa. NECK: Supple. No JVD. No carotid bruits. No lymph node. No thyromegaly. CHEST AND LUNGS: Bilateral symmetrical expansion. Good air exchange. No rales, no rhonchi. CARDIOVASCULAR SYSTEM: PMI not localized. S1, S2. No additional sounds. ABDOMEN: Normoactive bowel sounds. No tenderness. No organomegaly. No masses. EXTREMITIES: No cyanosis, no clubbing, no edema. TOBACCO CUTTER: Alert, awake, oriented x3. No neurological deficit could be appreciated. ASSESSMENT: 1. Acute deep venous thrombosis of the left femoral vein. 2. History of metastatic gallbladder cancer. 3. Hypertension. PLAN: Continue Lovenox 1 mg/kg q.12h. and surgical consult for IVC filter and plan to discharge patient on Lovenox as patient continued to have active cancer at this stage. Jp Purvis MD
[2017-07-25 07:50] LABS: BASO % 0.7 % (0.0-2.0); EOS # 0.5 K/uL (0.0-0.7); EOS % 6.6 % (0.0-4.0); HEMATOCRIT 39.9 % (34.0-47.0); LYMPH % 56.5 % (20.0-40.0); MEAN CELL VOLUME 93.4 fL (81.0-99.0); MEAN CORPUSCULAR HGB CONC 33.2 g/dL (33.0-37.0); MEAN PLATELET VOLUME 8.6 fL (7.2-11.7); MONO # 0.7 K/uL (0.0-0.8); MONO % 9.5 % (0.0-10.0); RED CELL DISTRIBUTION WIDTH 13.5 % (11.5-14.5); WHITE BLOOD COUNT 7.1 K/uL (4.8-10.8)
[2017-07-25 07:54] LABS: INR 1.1
[2017-07-25 08:24] LABS: ALB/GLOB RATIO 1.2 (1.0-2.1); ALKALINE PHOSPHATASE 51 U/L (38-126); ALT/SGPT 32 U/L (9-52); AST/SGOT 26 U/L (14-36); BILIRUBIN,TOTAL 0.7 mg/dL (0.2-1.3); BLOOD UREA NITROGEN 13 mg/dL (7-17); CALCIUM 8.2 mg/dl (8.6-10.4); CARBON DIOXIDE 30 mmol/L (22-30); CHLORIDE 107 mmol/L (98-107); GFR AFRICAN-AMERICAN > 60; GLUCOSE,RANDOM 84 mg/dL (65-105); POTASSIUM 3.7 mmol/L (3.6-5.2); SODIUM 141 mmol/L (132-148); TOTAL PROTEIN 6.1 g/dL (6.3-8.3)
[2017-07-25] MEDS: POLYETHYLENE GLYCOL 3350 17 GM/Dose PACKET PO SCH (09:00)
[2017-07-25] MEDS: Bisoprolol-HCTZ 2.5-6.25 mg Tab PO SCH (09:15)
[2017-07-25] MEDS: Enoxaparin 80 mg Syringe SC SCH ×2 (09:15→21:05)
[2017-07-25] MEDS: Saccharomyces Boulardi 250 mg Cap PO SCH ×2 (09:15→18:20)
--- NOTE | 2017-07-25 10:21 | VASCLAB ---
PROCEDURE: Left Lower Extremity Venous Duplex Exam. HISTORY: ?L femoral vein dvt seen on CT PRIORS: None. TECHNIQUE: Left common femoral, femoral, popliteal and posterior tibial, peroneal and great saphenous veins were evaluated. Flow was assessed with color Doppler, compressibility, assessment of phasic flow and augmentation response. Report prepared by Abdirashid Mcdaniel, RVT FINDINGS: LEFT: 1. Common Femoral Vein: 1.1. Compressibility - Partial: Thrombus - Acute : Flow - Reduced : Augmentation -Reduced: Reflux - . 2. Femoral Vein: 2.1. Compressibility - Fully compressible: Thrombus - None: Flow - Phasic: Augmentation -Normal: Reflux - . 3. Popliteal Vein: 3.1. Compressibility - Fully compressible: Thrombus - None: Flow - Phasic: Augmentation -Normal: Reflux - . 4. Posterior Tibial Vein: 4.1. Compressibility - Fully compressible: Thrombus - None: Flow - : Augmentation -: Reflux - . 5. Peroneal Vein: 5.1. Compressibility - Fully compressible: Thrombus - None: Flow - : Augmentation -: Reflux - . 6. Great Saphenous Vein: 6.1. Compressibility - Fully compressible: Thrombus - None: Flow - : Augmentation - : Reflux - . OTHER FINDINGS: IMPRESSION: A partially occlusive and loosely attached THROMBUS was noted in the LEFT distal common femoral vein for an isolated segment, resulting in decreased venous return. Normal valve function noted of the left side. The team taking care of the patient was aware of the findings. Normal venous flow noted in the right common femoral vein.
[2017-07-25] MEDS ORDERED: Iohexol 240 (50 ml) ONE (10:37)
[2017-07-25] MEDS ORDERED: HEPARIN-NS 5,000 UNITS/500 ML 5,000 UNIT/500 ML BAG IV ONE (10:38)
[2017-07-25] MEDS ORDERED: Lidocaine 1% Inj (20ml) ONE (10:38)
[2017-07-25] MEDS ORDERED: Lactated Ringer's 1,000 ML IV ONE ×2 (11:56)
[2017-07-25] MEDS ORDERED: Midazolam 2 MG/2 ML VIAL ONE (11:58)
[2017-07-25] MEDS: ceFAZolin IV 1 gm in Dextrose 1 GM/50 ML BAG IVPB ONE ×2 (11:59→12:00)
--- NOTE | 2017-07-25 12:41 | PCM.SURG1 ---
Surgeon's Initial Post Op Note - Surgeon's Notes Surgeon: Dr. Phelps Agency Sales Development Associate: Dr. Stephens PGY2 Type of Anesthesia: IV Sedation Pre-Operative Diagnosis: Left common femoral venous thrombosis Operative Findings: see dictation Post-Operative Diagnosis: same Operation Performed: ultrasound-guided right femoral venacava filter placement w / fluoroscopy Specimen/Specimens Removed: none Estimated Blood Loss: EBL {In ML}: 10 Post-Op Condition: Good Date of Surgery/Procedure: 07/25/17 Time of Surgery/Procedure: 11:45
--- NOTE | 2017-07-25 15:08 | RAD ---
PROCEDURE: Intraoperative Fluoroscopy. HISTORY: Deep venous thrombosis FINDINGS: Fluoroscopic assistance was provided for IVC filter placement. Please
[2017-07-25 16:51] VITALS: RESP 20
--- NOTE | 2017-07-25 22:20 | CARD ---
APPROVED REPORT EKG Measurement Heart [id number] <Conclusion> Sinus bradycardia with marked sinus arrhythmia Abnormal ECG
[2017-07-25 23:45] VITALS: PULSE 61
[2017-07-26] MEDS: Lactated Ringer's 1,000 ML IV SCH ×2 (01:20→12:15)
--- NOTE | 2017-07-26 07:51 | CP.PCM.PN ---
Subjective - Date & Time of Evaluation Date of Evaluation: 07/26/17 Time of Evaluation: 07:00 - Subjective Subjective: Vascular Surgery Dr. Phelps Pt S&E @bedside. Pt underwent IVC Filter placement. Pt tolerated the procedure well w/ no complications. NAEO. Pt has no complaints this morning. Pt denies F/C , N/V, pain. Tolerating regular diet. Objective - Vital Signs/Intake and Output Vital Signs (last 24 hours): Temp Pulse Resp BP Pulse Ox 98 F 61 20 151/64 H 98 07/25/17 23:44 07/25/17 23:44 07/25/17 23:44 07/25/17 23:44 07/25/17 23:44 Intake and Output: 07/26/17 07/26/17 06:59 18:59 Intake Total 980 Balance 980 - Medications Medications: Current Medications Acetaminophen (Tylenol 325mg Tab) 650 mg PO Q6 PRN PRN Reason: Pain, moderate (4-7) Bisoprolol Fumarate/HCTZ (Ziac 2.5-6.25 Mg) 1 tab PO DAILY [facility] Last Admin: 07/25/17 09:15 Dose: 1 tab Enoxaparin Sodium (Lovenox) 70 mg SC Q12 [facility] Last Admin: 07/25/17 21:05 Dose: 70 mg Lactated Ringer's (Lactated Ringer's) 1,000 mls @ 100 mls/hr IV .Q10H [facility] Last Admin: 07/26/17 01:20 Dose: Not Given Losartan Potassium (Cozaar) 100 mg PO DAILY@2000 [facility] Last Admin: 07/25/17 20:20 Dose: 100 mg Polyethylene Glycol (Miralax) 17 gm PO DAILY [facility] Last Admin: 07/25/17 09:00 Dose: Not Given Saccharomyces Boulardii (Florastor) 250 mg PO BID [facility] Last Admin: 07/25/17 18:20 Dose: 250 mg - Labs Labs: 07/25/17 07:31 07/25/17 07:31 PT 12.3 SECONDS (9.7-12.2) H 07/25/17 07:31 INR 1.1 07/25/17 07:31 APTT 34 SECONDS (21-34) D 07/25/17 07:31 - Constitutional Appears: Non-toxic, No Acute Distress - Head Exam Head Exam: NORMAL INSPECTION - Eye Exam Eye Exam: Normal appearance - ENT Exam ENT Exam: Mucous Membranes Moist - Respiratory Exam Respiratory Exam: NORMAL BREATHING PATTERN. absent: Accessory Muscle Use, Respiratory Distress - Cardiovascular Exam Cardiovascular Exam: absent: Bradycardia, Tachycardia - Exam Additional comments: groin site c/d/i no hematoma appreciated - Extremities Exam Extremities Exam: Normal Inspection - Neurological Exam Neurological Exam: Alert, Awake, Oriented x3 - Psychiatric Exam Psychiatric exam: Normal Affect, Normal Mood - Skin Skin Exam: Dry, Intact, Normal Color, Warm Assessment and Plan - Assessment and Plan (Free Text) Assessment: 82 y/o F POD#1 s/p IVC filter placement - continue medical management - monitor groin site for hematoma - encourage OOB to chair/Amb - pt cleared for discharge from surgical standpoint - no further surgical intervention at this time, please reconsult if needed Pt discussed w/ Dr. Lenin Stephens DO PGY2
[2017-07-26 08:03] VITALS: BP 157/72; TEMP 97.8
[2017-07-26] MEDS: Enoxaparin 80 mg Syringe SC SCH (10:12)
[2017-07-26] MEDS: Bisoprolol-HCTZ 2.5-6.25 mg Tab PO SCH (10:12)
[2017-07-26] MEDS: POLYETHYLENE GLYCOL 3350 17 GM/Dose PACKET PO SCH (10:12)
[2017-07-26] MEDS: Saccharomyces Boulardi 250 mg Cap PO SCH (10:12)
--- NOTE | 2017-07-26 11:59 | CP.PCM.DIS ---
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 (3) Hypertension Status: Chronic Hospital Course - Lab Results Lab Results: Most Recent Lab Values WBC 7.1 K/uL (4.8-10.8) 07/25/17 07:31 RBC 4.27 Mil/uL (3.80-5.20) 07/25/17 07:31 Hgb 13.3 g/dL (11.0-16.0) 07/25/17 07:31 Hct 39.9 % (34.0-47.0) 07/25/17 07:31 MCV 93.4 fL (81.0-99.0) 07/25/17 07:31 MCH 31.0 pg (27.0-31.0) 07/25/17 07:31 MCHC 33.2 g/dL (33.0-37.0) 07/25/17 07:31 RDW 13.5 % (11.5-14.5) 07/25/17 07:31 Plt Count 228 K/uL (130-400) 07/25/17 07:31 MPV 8.6 fL (7.2-11.7) 07/25/17 07:31 Neut % (Auto) 26.7 % (50.0-75.0) L 07/25/17 07:31 Lymph % (Auto) 56.5 % (20.0-40.0) H 07/25/17 07:31 Foster % (Auto) 9.5 % (0.0-10.0) 07/25/17 07:31 Eos % (Auto) 6.6 % (0.0-4.0) H 07/25/17 07:31 Baso % (Auto) 0.7 % (0.0-2.0) 07/25/17 07:31 Neut # 1.9 K/uL (1.8-7.0) 07/25/17 07:31 Lymph # 4.0 K/uL (1.0-4.3) 07/25/17 07:31 Foster # 0.7 K/uL (0.0-0.8) 07/25/17 07:31 Eos # 0.5 K/uL (0.0-0.7) 07/25/17 07:31 Baso # 0.0 K/uL (0.0-0.2) 07/25/17 07:31 PT 12.3 SECONDS (9.7-12.2) H 07/25/17 07:31 INR 1.1 07/25/17 07:31 APTT 34 SECONDS (21-34) D 07/25/17 07:31 Sodium 141 mmol/L (132-148) 07/25/17 07:31 Potassium 3.7 mmol/L (3.6-5.2) 07/25/17 07:31 Chloride 107 mmol/L (98-107) 07/25/17 07:31 Carbon Dioxide 30 mmol/L (22-30) 07/25/17 07:31 Anion Gap 8 (10-20) L 07/25/17 07:31 BUN 13 mg/dL (7-17) 07/25/17 07:31 Creatinine 0.7 mg/dL (0.7-1.2) 07/25/17 07:31 Est GFR ( Amer) > 60 07/25/17 07:31 Est GFR (Non-Af Amer) > 60 07/25/17 07:31 Random Glucose 84 mg/dL (65-105) 07/25/17 07:31 Calcium 8.2 mg/dl (8.6-10.4) L 07/25/17 07:31 Phosphorus 2.4 mg/dL (2.5-4.5) L 07/22/17 20:09 Magnesium 1.9 mg/dL (1.6-2.3) 07/22/17 20:09 Total Bilirubin 0.7 mg/dL (0.2-1.3) 07/25/17 07:31 AST 26 U/L (14-36) 07/25/17 07:31 ALT 32 U/L (9-52) 07/25/17 07:31 Alkaline Phosphatase 51 U/L (38-126) 07/25/17 07:31 Total Protein 6.1 g/dL (6.3-8.3) L 07/25/17 07:31 Albumin 3.3 g/dL (3.5-5.0) L 07/25/17 07:31 Globulin 2.8 gm/dL (2.2-3.9) 07/25/17 07:31 Albumin/Globulin Ratio 1.2 (1.0-2.1) 07/25/17 07:31 Blood Type O POSITIVE 07/22/17 20:09 Antibody Screen Negative 07/22/17 20:09 - Hospital Course Hospital Course: Initial Note: This is an 82-year-old female with history of metastatic gallbladder carcinoma, was admitted for acute deep venous thrombosis of the left femoral vein. Patient was evaluated in [facility] for her condition. Patient had CT angiogram done and left femoral vein acute thrombosis was incidentally found. Patient was brought to emergency room for evaluation and was admitted. Patient denies to have any pain or swelling of the lower extremities. Other review of systems negative. Hospital Course: Patient admitted for left femoral vein DVT seen incidentally on CT angiogram at [facility] and confirmed by LE dopplers on 07/22/17. 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 Per patient, she is not currently receiving any further therapy at this time for her condition. Patient was started on therapeutic Lovenox 1 mg/kg bodyweight twice daily. Vascular surgeon Dr. Phelps was consulted for IVC filter placement which was performed on 07/26/17. Prescriptions for the Lovenox and needles were already taken care of by Dr. Purvis. Patient's daughter who lives with her was trained and observed by the nurse on how to administer Lovenox. The daughter has done it twice successfully under observation. Patient discharged and instructed to follow up with Dr. Purvis as soon as he returns. This is a summary of the hospital course. Hospitalist team covering Dr. Purvis' service. For more information, refer to the medical records. Discharge Exam - Head Exam Head Exam: NORMAL INSPECTION - Eye Exam Eye Exam: EOMI, PERRL - ENT Exam ENT Exam: Mucous Membranes Moist - Respiratory Exam Respiratory Exam: Clear to PA & Lateral. absent: Rales, Rhonchi, Wheezes - Cardiovascular Exam Cardiovascular Exam: REGULAR RHYTHM, +S1, +S2 - GI/Abdominal Exam GI & Abdominal Exam: Normal Bowel Sounds, Soft. absent: Distended, Firm, Guarding, Tenderness - Extremities Exam Extremities exam: pedal pulses present - Neurological Exam Neurological exam: Alert, CN II-XII Intact, Oriented x3 - Psychiatric Exam Psychiatric exam: Normal Affect, Normal Mood - Skin Skin Exam: Dry, Intact, Normal Color, Warm Discharge Plan - Discharge Medications Prescriptions: Enoxaparin [Lovenox] 70 mg IV Q12H #60 syr - Follow Up Plan Condition: STABLE Disposition: HOME/ ROUTINE Instructions: Enoxaparin (By injection), Deep Venous Thrombosis (DC) Additional Instructions: Please follow up with Dr. Purvis in his office next week. Please continue all of your home medications as prescribed by Dr. Purvis. Please take the Lovenox twice a day by injection. Per our conversation, the pharmacy has already prepared the medication and needles. Alternate which side you inject on to minimize bruising. If there are any new or worsening symptoms, please return to the emergency room. 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 Per surgery, stable for discharge. Daughter and patient taught how to administer Lovenox injections by nursing staff. Report they are comfortable administering injections. DaughterAnna reports 1 month supply confirmed. 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 Hospital Course - Lab Results Lab Results: Most Recent Lab Values WBC 7.1 K/uL (4.8-10.8) 07/25/17 07:31 RBC 4.27 Mil/uL (3.80-5.20) 07/25/17 07:31 Hgb 13.3 g/dL (11.0-16.0) 07/25/17 07:31 Hct 39.9 % (34.0-47.0) 07/25/17 07:31 MCV 93.4 fL (81.0-99.0) 07/25/17 07:31 MCH 31.0 pg (27.0-31.0) 07/25/17 07:31 MCHC 33.2 g/dL (33.0-37.0) 07/25/17 07:31 RDW 13.5 % (11.5-14.5) 07/25/17 07:31 Plt Count 228 K/uL (130-400) 07/25/17 07:31 MPV 8.6 fL (7.2-11.7) 07/25/17 07:31 Neut % (Auto) 26.7 % (50.0-75.0) L 07/25/17 07:31 Lymph % (Auto) 56.5 % (20.0-40.0) H 07/25/17 07:31 Foster % (Auto) 9.5 % (0.0-10.0) 07/25/17 07:31 Eos % (Auto) 6.6 % (0.0-4.0) H 07/25/17 07:31 Baso % (Auto) 0.7 % (0.0-2.0) 07/25/17 07:31 Neut # 1.9 K/uL (1.8-7.0) 07/25/17 07:31 Lymph # 4.0 K/uL (1.0-4.3) 07/25/17 07:31 Foster # 0.7 K/uL (0.0-0.8) 07/25/17 07:31 Eos # 0.5 K/uL (0.0-0.7) 07/25/17 07:31 Baso # 0.0 K/uL (0.0-0.2) 07/25/17 07:31 PT 12.3 SECONDS (9.7-12.2) H 07/25/17 07:31 INR 1.1 07/25/17 07:31 APTT 34 SECONDS (21-34) D 07/25/17 07:31 Sodium 141 mmol/L (132-148) 07/25/17 07:31 Potassium 3.7 mmol/L (3.6-5.2) 07/25/17 07:31 Chloride 107 mmol/L (98-107) 07/25/17 07:31 Carbon Dioxide 30 mmol/L (22-30) 07/25/17 07:31 Anion Gap 8 (10-20) L 07/25/17 07:31 BUN 13 mg/dL (7-17) 07/25/17 07:31 Creatinine 0.7 mg/dL (0.7-1.2) 07/25/17 07:31 Est GFR ( Amer) > 60 07/25/17 07:31 Est GFR (Non-Af Amer) > 60 07/25/17 07:31 Random Glucose 84 mg/dL (65-105) 07/25/17 07:31 Calcium 8.2 mg/dl (8.6-10.4) L 07/25/17 07:31 Phosphorus 2.4 mg/dL (2.5-4.5) L 07/22/17 20:09 Magnesium 1.9 mg/dL (1.6-2.3) 07/22/17 20:09 Total Bilirubin 0.7 mg/dL (0.2-1.3) 07/25/17 07:31 AST 26 U/L (14-36) 07/25/17 07:31 ALT 32 U/L (9-52) 07/25/17 07:31 Alkaline Phosphatase 51 U/L (38-126) 07/25/17 07:31 Total Protein 6.1 g/dL (6.3-8.3) L 07/25/17 07:31 Albumin 3.3 g/dL (3.5-5.0) L 07/25/17 07:31 Globulin 2.8 gm/dL (2.2-3.9) 07/25/17 07:31 Albumin/Globulin Ratio 1.2 (1.0-2.1) 07/25/17 07:31 Blood Type O POSITIVE 07/22/17 20:09 Antibody Screen Negative 07/22/17 20:09 Attending/Attestation - Attestation I have personally seen and examined this patient.: Yes I have fully participated in the care of the patient.: Yes I have reviewed all pertinent clinical information, including history, physical exam and plan: Yes Notes (Text): Hospitalist Covering Dr. Flower's who is away on vacation Patient seen, examined and case discussed with day-time resident. Per view of EMR, patient with known hx of metastatic gallbladder cancer and hypertension who presents with acute deep venous thrombosis of the left femoral vein. Vascular surgery consulted for IVC filter. Patient had IVC filter placed and per surgery, stable from their stand point. Patient and daughter, Anna taught by nursing staff for self-administration of therapeutic Lovenox injections, which they report they are comfortable administering. Patient has supply 1 month of Lovenox injections confirmed with pharmacy. Patient affirms she has enough of other medications. No new refills needed. Discussed patient's discharge with PMD, Dr Purvis, who is aware of patient's discharge and recommends follow-up in his office in one week. This is a summary of patient's hospitalization. Please review EMR for further details. Discharge Diagnoses: 1) Acute deep venous thrombosis of the left femoral vein-->Stable * Vascular surgery (Dr. Phelps)-->help appreciated * s/p IVC filter placement POD1, stable for discharge * Recommended for therapuetic Lovenox injections and teaching provided prior to discharge. 2) History of metastatic gallbladder cancer-->Chronic * No further intervention per daughter * Risk factor for DVT formation 3) Hypertension-->Chronic * Losartan 100mg PO daily
[2017-07-26 14:51] VITALS: O2SAT 98
== END 2017-07-26 12:53 | disposition home or self-care (01) | DRG 300 ==
LOC: C.ER 18:30 → C.9E 19:36 → C.3T 20:52
PROVIDERS: ADMIT Hospitalist; ATTEND Hospitalist
DX: I82.412 Acute embolism and thrombosis of left femoral vein (principal); C23 Malignant neoplasm of gallbladder; I10 Essential (primary) hypertension; E78.00 Pure hypercholesterolemia, unspecified; Z90.49 Acquired absence of other specified parts of digestive tract